=== PATIENT | female | born 1960 | race African-American/Black ===

== ENCOUNTER → 2016-11-24 | Outpatient (CLI) | payer OTHER ==
[~2016-11-24] VITALS: Ht 160 cm; Wt 88.5 kg
[~2016-11-24] MED LIST: ADIPEX-P37.5 MG PO; AMITRIPTYLINE H25 M2 PO; ASPIR 8181 MG PO; COLACE100 MG PO; FLEXERIL PO; FLOVENT HFA 1110 MCG INH; HYDROCODON-ACE1 EAC5 PO; LINZESS290 MCG PO; MAXZIDE-25 MG1 EACH PO; NEXIUM40 MG PO; NORCO 5-325 TA1 EACH PO; PROMETHAZI6.25 MG/5 PO; SINGULAIR 10 MG10 M1 PO; SYMBICORT160 MCG/4. INH; VOLTAREN GEL 1100 G1 TOP; VOLTAREN GEL 1100 GM TOP
--- NOTE | ~2016-11-24 | HPC ---
[facility] [address] [place] [address] PAIN MANAGEMENT CONSULTATION Name: GELYMITESH Room #: REG [facility] Annalise#: [id number] Admission: 11/24/16 Attend Phys: Rohith Andrade MD Discharge: Date of : 58 Report #: [id number] THIS REPORT FOR: //name// CC: Rohith Ragland DATE OF SERVICE: 11/24/2016 FOLLOWUP COMPLAINT: Here for medication renewal. FOLLOWUP HISTORY: The patient is a 56-year-old female who has been followed in the pain clinic because of pain associated with her legs. She has been experiencing low back pain as well as pain in her feet. She found that the Voltaren cream applied to her feet has been quite instrumental in decreasing the pain and discomfort. She continues to have pain and discomfort in the lumbar area and down into her legs. She describes a cramping, aching, throbbing, sharp sensation and rates it as a 9/10 when it is problematic. She notes exacerbation of pain while climbing stairs, sitting, standing and notes some improvement with rest as well as with medications. She is taking her medications as prescribed. She has had no complications with their use. She keeps her medications in a guarded area. PHYSICAL EXAMINATION: Blood pressure 143/80, pulse 118, respiratory rate 18, room air saturation 98.4, saturation is 100%. Weight 88 kg. BMI is 34.6. IMPRESSION: Chronic pain in the lower portion of the legs, which is exacerbated by certain activities such as climbing stairs, prolonged standing. We saw her in July and wrote for hydrocodone. The patient felt that the medicine is helpful as well as noted improvement using Voltaren gel. She would like to continue with the Voltaren gel as well as with the hydrocodone medications. She is unable to take nonsteroidal anti-inflammatory medications by mouth given her gastrointestinal problems. We would like to thank you for letting us participate in her care. We hope she continues to improve. <ELECTRONICALLY SIGNED> By: Rohith Andrade MD 12/05/16 1018 [id number] [id number] Rohith Andrade MD /nt
[2016-11-24 09:07] VITALS: BP 143/80
== END | disposition home or self-care (01) ==
LOC: PAIN 06:51
DX: M54.16 Radiculopathy, lumbar region (principal)

== ENCOUNTER → 2017-01-17 | Outpatient (CLI) | payer OTHER ==
[~2017-01-17] VITALS: Ht 160 cm; Wt 87.5 kg
--- NOTE | ~2017-01-17 | HPC ---
[facility] [address] [address] PAIN MANAGEMENT CONSULTATION Name: GELYMITESH Room #: REG YASHBrandy Woody#: [id number] Admission: 01/17/17 Attend Phys: Rohith Andrade MD Discharge: Date of : 58 Report #: [id number] THIS REPORT FOR: //name// CC: Rohith Ragland MD DATE OF SERVICE: 01/17/2017 FOLLOWUP HISTORY: Here for medication renewal and things are going reasonably well. FOLLOWUP HISTORY: The patient is a 56-year-old female who has been seen in the pain clinic because of lumbar radiculopathy. She is experiencing and has pain radiating down into her legs. She has also noted when she awakens in the morning, she does have pain and discomfort and cramping in both hands. She notes that it takes a little while before the numbness starts to subside. She does have a mother who had carpal tunnel syndrome and her mother's sensation and symptoms were similar to what she is experiencing. She finds that the Voltaren gel is helpful on her knees and would like to continue with it. She has had no problems since we saw her last. PHYSICAL EXAMINATION: Blood pressure 132/92, pulse 114, respiratory rate 20, room air saturation is 100%. Height 5 feet 3 inches, weight 87 kilograms. BMI is 34. The patient has pain and discomfort down into her legs bilaterally to the level of the cast. She also has some numbness and tingling sensation in her hands, left and right, particularly in the morning when she wakes up. She rates her pain overall as an 8/10. IMPRESSION: 1. Low back pain with pain radiating down into the legs. 2. Bilateral hand discomfort, particularly in the morning when she wakes up. The patient does not have pain radiating down from her shoulders or from the elbow. It appears that it is more in her hands. Most likely problem is carpal tunnel type pathology. She may consider visiting a surgeon in the future if it continues to be problematic. RECOMMENDATION: We will continue with her hydrocodone 5/325 one p.o. q. 4-6 hours p.r.n. A script for Voltaren gel will be renewed. Flexeril 10 mg 1 p.o. t.i.d. has been written. She notes some spasms and cramping in her low back and leg area. We would like to thank you for letting us participate in her care. We hope she continues to improve. By: 1212 1250 Rohith Andrade MD /nt
[2017-01-17 11:17] VITALS: BP 132/92
== END | disposition home or self-care (01) ==
LOC: PAIN 07:04
DX: M54.16 Radiculopathy, lumbar region (principal); I10 Essential (primary) hypertension; M19.90 Unspecified osteoarthritis, unspecified site; F17.200 Nicotine dependence, unspecified, uncomplicated

== ENCOUNTER → 2017-02-21 | Outpatient (CLI) | payer OTHER ==
[~2017-02-21] VITALS: Ht 160 cm; Wt 88.7 kg
--- NOTE | ~2017-02-21 | HPC ---
[facility] [place] [address] [place] [address] PAIN MANAGEMENT CONSULTATION Name: GELYMITESH Room #: REG Brandy Woody#: [id number] Admission: 02/21/17 Attend Phys: Rohith Andrade MD Discharge: Date of : 58 Report #: [id number] THIS REPORT FOR: //name// CC: Rohith Ragland DATE OF SERVICE: 02/21/2017 FOLLOWUP COMPLAINT: "The medication continues to be helpful with the pain down in my back and legs." FOLLOWUP HISTORY: The patient is a 56-year-old female who has been followed in the pain clinic because of low back pain with pain radiating down into each leg. She finds that Voltaren gel is efficacious on her knees. She feels that the hydrocodone medication continues to be helpful. Flexeril 10 mg 1 p.o. t.i.d. is beneficial as well. She has not had any problems with these medications. PHYSICAL EXAMINATION: Blood pressure 126/92, pulse 113, respiratory rate 16, room air saturation is 100. Height 5 feet 3, weight 88 kilograms, BMI is 34. She continues to have pain down into her legs bilaterally. She continues to experience some numbness and tingling in her hands, left and right, particularly in the morning. She rates her overall pain as a 10 today. The weather has changed and has gone from 70 degrees to the 50s today. IMPRESSION: 1. Low back pain with pain which continues to radiate down into her legs. 2. Hand discomfort, particularly in the morning of an arthritic nature. She notes some pain radiating down from her calves with an aching, throbbing, sharp, burning discomfort. Pain is exacerbated by standing, sitting, walking stairs and improves with rest and heat. RECOMMENDATIONS: We discussed treatment options with the patient. We will continue with her current medical regimen of Voltaren gel 1% q.i.d. to the affected joints, Flexeril 10 mg 1 p.o. t.i.d. and hydrocodone 10/325 one p.o. q. 4-6 hours p.r.n. pain. A script for 75 tablets has been written. Scripts for Flexeril and Voltaren have been provided. We discussed the need for the patient to only get her opioid medications from one physician. She has signed a contract with the [facility] indicating that she would receive opioid medications only from one physician to stay compliant with the law. We would like to thank you for letting us participate in her care. We hope she continues to improve. By: [phone] Rohith Andrade MD /jose
[2017-02-21 11:03] VITALS: BP 126/92
== END ==
LOC: PAIN 07:29
DX: M54.5 Low back pain (principal); M79.643 Pain in unspecified hand

== ENCOUNTER → 2017-03-23 | Outpatient (CLI) | payer OTHER ==
[~2017-03-23] VITALS: Ht 160 cm; Wt 86.3 kg
--- NOTE | ~2017-03-23 | HPC ---
[facility] [address] [address] PAIN MANAGEMENT CONSULTATION Name: GELYMITESH Room #: REG Brandy Woody#: [id number] Admission: 03/23/17 Attend Phys: Rohith Andrade MD Discharge: Date of : 58 Report #: [id number] THIS REPORT FOR: //name// CC: Rohith Ragland DATE OF SERVICE: 03/23/2017 FOLLOWUP COMPLAINT: Here for medication refill and I am having some severe pain in my left hand with numbness, weakness and tingling. FOLLOWUP HISTORY: The patient is a 56-year-old female who has been seen and followed in the pain clinic because of lumbar radicular pain down into her leg. She finds that use of Voltaren gel has been helpful. She places this on her knees. She finds that the hydrocodone medication and Flexeril are beneficial as well. She has noted some pain and discomfort involving her left hand at the level of her wrist. She feels that there is some discomfort there and is not sure whether or not she has carpal tunnel syndrome. PHYSICAL EXAMINATION: Blood pressure 137/87, pulse 104, respiratory rate 16, room air saturation is 100%. Height 5 foot 3 inches, weight 86 kg. BMI is 33. The patient has not fallen since we saw her last. She continues to have pain and discomfort in her hands, left side more problematic than the right, particularly in the morning. She rates her pain as a 10 today. The weather continues to change and has just rained today. IMPRESSION: 1. Low back pain, which continues to radiate down into her legs, improves with use of hydrocodone and Flexeril. 2. Left hand discomfort, particularly in the morning, may be of an arthritic nature. RECOMMENDATIONS: We will continue with her current medical regimen of Voltaren gel to the affected area q.i.d., Flexeril 10 mg 1 p.o. t.i.d., hydrocodone 10/325 one p.o. q. 4-6 hours p.r.n., A script for 75 tablets has been written. A script for her other medications has been written. She will follow up in the future as needed. The patient will wear a brace on the left arm and note its efficacy. We would like to thank you for letting us participate in her care. We hope she continues to improve. By: [id number] [id number] Rohith Andrade MD /jose
[2017-03-23 11:30] VITALS: BP 137/87
== END | disposition home or self-care (01) ==
LOC: PAIN 06:51
DX: M54.16 Radiculopathy, lumbar region (principal); M54.5 Low back pain; M79.642 Pain in left hand; F17.200 Nicotine dependence, unspecified, uncomplicated

== ENCOUNTER → 2017-04-18 | Outpatient (CLI) | payer OTHER ==
[~2017-04-18] VITALS: Ht 160 cm; Wt 86.8 kg
--- NOTE | ~2017-04-18 | HPC ---
[facility] [address] [address] [place] [address] PAIN MANAGEMENT CONSULTATION Name: MITESH HONG Room #: REG YASHBrandy Woody#: [id number] Admission: 04/18/17 Attend Phys: Rohith Andrade MD Discharge: Date of : 58 Report #: [id number] THIS REPORT FOR: //name// CC: Rohith Ragland MD DATE OF SERVICE: 04/18/2017 FOLLOWUP COMPLAINT: Here for medication renewal. FOLLOWUP HISTORY: The patient is a 56-year-old female who has been followed in the pain clinic because of low back pain, which radiates down into her legs. She finds that hydrocodone as well as Flexeril continues to be helpful. These enable her to engage in activities of daily living, she would not be able to without their use. She has had no complications from using them. She notes that the pain is worse when she is standing, sitting, and climbing stairs. Pain worsened . She notes that her pain improves somewhat with use of her medications, heat and feels that the Voltaren gel continues to be helpful. She continues to have some pain, which she describes as severe in her left hand and reports continued weakness, numbness and tingling down in her low back pain. PHYSICAL EXAMINATION: Blood pressure 121/91, pulse 105, respiratory rate 14, room air saturation is 100, height 5 feet 3 inches, weight 160 pounds, and BMI is 33. The patient has not fallen since we saw her last. IMPRESSION: 1. Low back pain-this continues to radiates down into her legs, notes improvement with use of hydrocodone and Flexeril. 2. Keeping the medications in a guarded place. 3. Left hand discomfort, sounds somewhat arthritic in nature. RECOMMENDATIONS: We will continue with the patient's current medical regimen of Voltaren gel to the affected area q.i.d., Flexeril 10 mg 1 p.o. t.i.d., and hydrocodone 10/325 one q.4-6 hours p.r.n. The patient has been given a script for 75 tablets. She will call us up if she has any problems with her medications. We would like to thank you for letting us participate in her care. We hope she continues to improve. By: [id number] Rohith Andrade MD /jose
[2017-04-18 10:36] VITALS: BP 121/91
== END | disposition home or self-care (01) ==
LOC: PAIN 07:04
DX: M79.605 Pain in left leg (principal); M79.604 Pain in right leg; F17.200 Nicotine dependence, unspecified, uncomplicated

== ENCOUNTER → 2017-05-16 | Outpatient (CLI) | payer OTHER ==
[~2017-05-16] VITALS: Ht 162.6 cm; Wt 86.2 kg
[2017-05-16 10:46] VITALS: BP 129/84
== END | disposition home or self-care (01) ==
LOC: PAIN 07:19
DX: M54.16 Radiculopathy, lumbar region (principal); M79.642 Pain in left hand; J45.909 Unspecified asthma, uncomplicated; F11.20 Opioid dependence, uncomplicated; F17.200 Nicotine dependence, unspecified, uncomplicated; Z88.8 Allergy status to other drugs, medicaments and biological substances; Z79.82 Long term (current) use of aspirin; Z79.899 Other long term (current) drug therapy

== ENCOUNTER → 2017-06-13 | Outpatient (CLI) | payer OTHER ==
[~2017-06-13] VITALS: Ht 160 cm; Wt 86.6 kg
--- NOTE | ~2017-06-13 | HPC ---
[facility] [address] [address] PAIN MANAGEMENT CONSULTATION Name: MITESH HONG Room #: REG [facility] Annalise#: [id number] Admission: 06/13/17 Attend Phys: Rohith Andrade MD Discharge: Date of : 58 Report #: [id number] THIS REPORT FOR: //name// CC: Rohith Ragland MD DATE OF SERVICE: 06/13/2017 FOLLOWUP COMPLAINT: Continued back pain and "I have plantar fasciitis." FOLLOWUP HISTORY: The patient is a 56-year-old female who has been followed in the pain clinic because of chronic pain. She continues to have pain, which radiates down into her legs. Hydrocodone and Flexeril continue to be helpful. She states that she has taken her medications as prescribed. She has suffered from plantar fasciitis. She has undergone an injection in her heel. She still finds that the pain is quite problematic and limits her activities of daily living. She feels that the Voltaren gel continues to be helpful. PHYSICAL EXAMINATION: Blood pressure 144/85, pulse 110, respiratory rate is 14, and room air saturation is 97%. Height 5 foot 3 inches, weight 191 pounds, BMI is 33. The patient has not fallen since we saw her last. Continues to have pain and discomfort, which radiates down into her legs. IMPRESSION: 1. Low back pain, continues to improve. Radiation down the legs limits some activities of daily living. 2. Left hand discomfort, which appears to be of arthritic in nature. 3. Plantar fasciitis, status post injection in her feet and discussed shoe . RECOMMENDATION: The patient will continue with her current medical regimen of Flexeril, hydrocodone and Voltaren. She also has been given advice to wear shoes which are less flexible than the flip-flops which she has on. We would like to thank you for letting us participate in her care. We hope she continues to improve. By: [id number] Rohith Andrade MD /nt
[2017-06-13 10:29] VITALS: BP 144/85
== END ==
LOC: PAIN 07:15
DX: M54.5 Low back pain (principal)

== ENCOUNTER → 2017-07-11 | Outpatient (CLI) | payer OTHER ==
[~2017-07-11] VITALS: Ht 160 cm; Wt 86.7 kg
[~2017-07-11] MED LIST changes: +MEDROLDOSEPACK PO
--- NOTE | ~2017-07-11 | HPC ---
[facility] [address] [place] [address] PAIN MANAGEMENT CONSULTATION Name: GELYMITESH Room #: REG JENNIFER Woody#: [id number] Admission: 07/11/17 Attend Phys: Rohith Andrade MD Discharge: Date of : 58 Report #: [id number] THIS REPORT FOR: //name// CC: Rohith Ragland DATE OF SERVICE: 07/11/2017 FOLLOWUP COMPLAINT: Here for medication renewal. My plantar fasciitis has got worse. FOLLOWUP HISTORY: The patient is a 56-year-old female who has been seen in the pain clinic because of chronic pain involving her low back with radiation down into her legs. She has noticed worsening of pain and discomfort in the right lower back with pain radiating down into the posterior portion of her leg and down to the calf area. She feels that the pain is problematic. She has got some injections in her feet. Because of this treatment and the use of needles in her feet, at this juncture she would like to continue on a conservative approach. She notes that her pain is worse when she is standing, sitting and with climbing stairs. She feels that the Voltaren gel continues to be helpful as well. She states that she keeps her medications in a guarded environment. She is where that opioid medications can cause addiction and can become less effective after a person develops tolerance. She feels at this juncture, she could increase her medication to 1 pill p.o. t.i.d. that might be more efficacious. PHYSICAL EXAMINATION: VITAL SIGNS: Blood pressure 125/82, pulse 107, respiratory rate 16, room air saturation 100%. Height 5 foot 3, weight 191 pounds, BMI is 33. MUSCULOSKELETAL: The patient has pain and discomfort in the right posterior buttocks area with pain radiating down the posterior portion of her leg in the L5-S1 distribution. She continues to have knee pain and finds that the use of Voltaren gel continues to be helpful. She continues to have pain and discomfort, which is consistent with plantar fasciitis. IMPRESSION: 1. Low back pain with radiation down into her right leg with numbness, tingling and weakness in the L5-S1 distribution. 2. The patient keeps her medications in a guarded place -- Aware of possible complications associated with narcotic use, which include addiction and tolerance. 3. Continued left hand discomfort, pain similar to that of arthritis. RECOMMENDATIONS: We discussed treatment options with the patient. We will increase her medications from ____ hydrocodone every day to 90 pills per month, [place] [address] PAIN MANAGEMENT CONSULTATION Name: MITESH HONG Room #: REG [facility] Annalise#: [id number] Admission: 07/11/17 Attend Phys: Rohith Andrade MD Discharge: Date of : 58 Report #: [id number] which is 1 p.o. t.i.d. She will also continue with her use of Flexeril and Voltaren gel. She will call us if she has any problems with her medications. We may consider lumbar epidural steroid injection in the future should her L5-S1 radiculopathy with numbness, weakness and tenderness persists. By: [id number] [id number] Roihth Andrade MD /nt
[2017-07-11 10:31] VITALS: BP 125/82
== END | disposition home or self-care (01) ==
LOC: PAIN 07:06
DX: M54.5 Low back pain (principal); Z68.33 Body mass index [BMI] 33.0-33.9, adult; Z79.899 Other long term (current) drug therapy; F17.200 Nicotine dependence, unspecified, uncomplicated

== ENCOUNTER → 2017-08-08 | Outpatient (CLI) | payer OTHER ==
[~2017-08-08] VITALS: Ht 160 cm; Wt 89.4 kg
--- NOTE | ~2017-08-08 | HPC ---
[facility] [place] [address] [address] [place] [address] PAIN MANAGEMENT CONSULTATION Name: GELYMITESH Room #: REG JENNIFER Woody#: [id number] Admission: 08/08/17 Attend Phys: Rohith Andrade MD Discharge: Date of : 58 Report #: [id number] THIS REPORT FOR: //name// CC: Rohith Veronica Goodyear DATE OF SERVICE: 08/08/2017 FOLLOWUP COMPLAINT: Low back pain with pain radiating down into the leg with some numbness and tingling. FOLLOWUP HISTORY: The patient is a 56-year-old female who has been seen in the pain clinic because of pain and discomfort involving her low back, as well as arthritic discomfort. She finds that her current medical regimen is helpful. She is still having some pain and discomfort, which radiates down into her calf. She states that her pain is worse when she is standing, sometimes sitting as well as climbing stairs. She feels that the Voltaren Gel continues to be helpful in her knees. She would like to continue with her current medications. She states that she has been taking her medications as prescribed. She keeps them in a guarded area. We have discussed the possibility of addiction as well as dependence with the patient. Overall, she feels that these medications were efficacious and enable her to engage in activities she would find more difficult without their use. She would like to have her medications prescribed on a bi-monthly basis. PHYSICAL EXAMINATION: Blood pressure 146/81, pulse 129, respiratory rate 18, room air saturation is 99, height 5 feet 3 inches, weight 197 pounds, BMI is 34. The patient has pain and discomfort in the buttocks with pain that continues radiating down the posterior portion of her leg in the L5-S1 distribution. She continues to have knee pain, which improves with use of Voltaren Gel. Continues to have some discomfort secondary to plantar fascitis. IMPRESSION: 1. Low back pain. Pain radiating down into her leg with numbness, tingling and weakness in the L5-S1 distribution. 2. Chronic knee pain. Finds that use of Voltaren Gel is helpful. 3. Some pain involving the plantar area. RECOMMENDATIONS: We discussed treatment options with the patient. At this juncture, she has been followed in the Pain Clinic for greater than a year. There have been no problems with her medications. We will advance her medications to a bi-monthly scheduling. She will give her medication for this month and the following month. She will call us if she has any problems with her medications. We would like to thank you for letting us participate in her care. A script for hydrocodone one p.o. [place].i.d. [place] [address] PAIN MANAGEMENT CONSULTATION Name: MITESH HONG Room #: REG JENNIFER Woody#: [id number] Admission: 08/08/17 Attend Phys: Rohith Andrade MD Discharge: Date of : 58 Report #: [id number] Voltaren Gel. We would like to thank you for letting us participate in her care. We hope she continues to improve. <ELECTRONICALLY SIGNED> By: Rohith Andrade MD 08/09/17 0822 1109 1459 Rohith Andrade MD /PMT
[2017-08-08 10:19] VITALS: BP 146/81
== END ==
LOC: PAIN 07:06
DX: M54.5 Low back pain (principal); M25.569 Pain in unspecified knee

== ENCOUNTER → 2017-10-05 | Outpatient (CLI) | payer OTHER ==
[~2017-10-05] VITALS: Ht 160 cm; Wt 88.5 kg
[~2017-10-05] MED LIST changes: +ACCUNEB SO1.25 MG/1 INH; +LISINOPRIL5 MG PO; +NEURONTIN 300300 M1 PO; +NORCO 10-325 T1 EACH PO; +PERCOCET 10-321 EAC1 PO; +VENTOLIN HFA 1818 GM INH; +VITAMIN D350000 UNIT PO
--- NOTE | ~2017-10-05 | HPC ---
[facility] [address] [address] [place] [address] PAIN MANAGEMENT CONSULTATION Name: GELYMITESH WHITMAN [facility] [id number] Admission: 10/05/17 Attend Phys: Rohith Andrade MD Discharge: Date of : 58 Report #: [id number] THIS REPORT FOR: //name// CC: Rohith Rgaland MD DATE OF SERVICE: 10/16/2017 FOLLOWUP COMPLAINT: Pain in the low back, as well as down into both legs. FOLLOWUP HISTORY: The patient is a 57-year-old female who has been followed in the pain clinic. As you recall, she has pain and discomfort in the lower portion of her back with lumbar radicular symptoms. She finds that her current opioid medication of hydrocodone 10/325 one p.o. t.i.d., Flexeril and Voltaren gel are helpful, particularly in the area of her knees. She feels that these medications are helpful. She is taking them as prescribed. We have discussed the possible complications of opioid medications, which include dependence and tolerance. She states that she keeps them in a controlled environment. She is able to engage in activities, she would not be able to without their use. PHYSICAL EXAMINATION: Blood pressure 127/80, pulse 115, respiratory rate 14, room air saturations 100. Height is 5 feet 3 inches, weight 195 pounds, BMI is 34. The patient complains of pain and discomfort with her knees, status post bilateral knee replacements. Continues to have some pain in the L5-S1 distribution. IMPRESSION: 1. Low back pain radiating down into her legs with numbness, tingling and weakness in the L5-S1 distribution. 2. Chronic knee pain. Finds use of Voltaren helpful. 3. Plantar fasciitis. RECOMMENDATIONS: The patient is going to see her heel sorter for treatment of this very painful problem. A script for her medications for the next 2 months has been written. Possible complication of using opioid medications again, have been renew. The patient will call us if she has any problems with her medications. She will keep them in an area that is guarded. <ELECTRONICALLY SIGNED> By: Rohith Andrade MD 10/18/17 0945 [id number] 1732 Rohith Andrade MD /[facility]
[2017-10-05 10:44] VITALS: BP 127/80
== END ==
LOC: PAIN 07:02
DX: M54.16 Radiculopathy, lumbar region (principal); G89.29 Other chronic pain; R20.0 Anesthesia of skin; R20.2 Paresthesia of skin; R53.1 Weakness; M25.561 Pain in right knee; M25.562 Pain in left knee; F19.90 Other psychoactive substance use, unspecified, uncomplicated; M72.2 Plantar fascial fibromatosis; Z96.653 Presence of artificial knee joint, bilateral

== ENCOUNTER → 2017-10-08 | Day surgery (SDC) | payer OTHER ==
[~2017-10-08] VITALS: Ht 160 cm; Wt 88.9 kg
[~2017-10-08] MED LIST changes: -LISINOPRIL5 MG PO; -NEURONTIN 300300 M1 PO; -PERCOCET 10-321 EAC1 PO
--- NOTE | ~2017-10-08 | EKG ---
[place] [address] [facility] [place] [address] ELECTROCARDIOGRAM REPORT Name: GELYMITESH Room #: 150-3 [facility]#: [id number] Admission: 10/08/17 Attend Phys: Maury No DPM Discharge: Date of : 58 Report #: [id number] THIS REPORT FOR: //name// [facility] Test Date: 2017-10-08 Test Time: 08:12:37 Pat Name: MITESH HONG Department: Room: 150 3 Gender: F Metal Cnc Operator: AIDE : 1960 Requested By: Maury No Order Number: [id number] MD: Reyes Funes Measurements Intervals [place] Rate: 106 P: 65 TX: 134 QRS: -28 QRSD: 80 T: 50 QT: 340 QTc: 452 Interpretive Statements Sinus tachycardia Borderline left axis deviation Abnormal R-wave progression, late transition No previous ECG available for comparison Electronically Signed On 10-08-2017 9:16:05 DATA SECURITY ADMINISTRATOR by Reyes Funes [email or web address] <ELECTRONICALLY SIGNED> By: Reyes Funes MD, [facility] 10/08/17915 1 1 Reyes Funes MD, [facility] /EPI
--- NOTE | ~2017-10-08 | O ---
[facility] [place] [address] OPERATIVE REPORT Name: MITESH HONG Room #: 150-3 [facility] M..#: [id number] Admission: 10/08/17 Attend Phys: Maury No DPM Discharge: Date of : 58 Report #: [id number] THIS REPORT FOR: //name// CC: Maury Veronica [place] DATE OF SERVICE: 10/08/2017 SURGEON: Maury No DPM PREOPERATIVE DIAGNOSIS: Plantar fasciitis, bilateral feet. POSTOPERATIVE DIAGNOSIS: Plantar fasciitis, bilateral feet. PROCEDURE: Fasciotomy, bilateral feet. ANESTHESIA: IV sedation, local nerve block. HEMOSTASIS: Provided with ankle tourniquets to bilateral lower extremities. ESTIMATED BLOOD LOSS: Minimal. COMPLICATIONS: There were no complications during the procedure or the anesthesia. PREOPERATIVE COURSE: This patient presented in the office for conservative treatment of her plantar fasciitis and was given 2 subsequent steroid injections, which failed to alleviate her pain. The pain in both arches has progressed to the severity of causing significant quality of life issues for her and after discussing our options in the office, decided that surgical correction would be performed after she admitted to understanding of the risks and complications involve as well as the technical aspects of the surgery. The patient signed a preoperative consent form, admitting to her understanding of both of these. OPERATIVE REPORT: The patient was wheeled to the operating room in usual supine condition and transferred to the operating room table, given IV sedation. Once the IV sedation was found to be adequate, local nerve block was given to the feet bilaterally. Upon reentering the operating room, anesthesia was found to be adequate. Esmarch tourniquets were used to exsanguinate the blood from the right foot and the ankle tourniquet elevated to 250 mmHg. A transverse incision was made on the plantar aspect of the right foot along the medial arch just distal to the area where the calcaneal tuberosity would be located. This was deepened sharply and bluntly, taking care to cauterize all bleeders and through blunt dissection, the medial band of the plantar fascia was identified. The medial band of the plantar fascia was transected over the medial 1/[address] [address] OPERATIVE REPORT Name: MITESH HONG Room #: 150-3 [facility]#: [id number] Admission: 10/08/17 Attend Phys: Maury No DPM Discharge: Date of : 58 Report #: [id number] proximal aspect of the plantar fascia. Upon external palpation, this was found to be decreased in tension along the medial arch. The tourniquet was released to the right foot. Cap refill immediately returned to all digits and hemostasis was maintained at the incision site. Using 4-0 nylon suture, a simple horizontal mattress stitch was used to close the wound. Sterile dressing was placed on the right foot. The tourniquet was then elevated on the left ankle after exsanguination with the Esmarch tourniquet. Again, a transverse incision was made on the plantar medial aspect of the left arch just anterior to the heel. This was deepened sharply and bluntly, taking care to cauterize and retract all bleeders and through a blunt dissection, the medial band of the plantar fascia was identified and released along its medial 1/3. Again, palpation of the medial arch externally was found to be free of any tension that was noted preoperatively. Upon release of the tourniquet, cap refill immediately returned to all digits on the left foot. The wound was closed with a simple horizontal mattress suture. Sterile dressing placed on the left foot. The patient left the operating room in a stable condition. She was given Lortab 7.5/325 mg for pain management and will follow up in about 3 days for postoperative wound management. By: [id number] Maury No, MERRITT /jose
[2017-10-08 08:33] LABS: CALCIUM 9.6 mg/dL (8.5-10.1); CREATININE 1.1 mg/dL (0.6-1.0); POTASSIUM 3.6 mmol/L (3.5-5.1)
[2017-10-08 09:13] VITALS: BP 154/79
== END | disposition home or self-care (01) ==
LOC: OR → TBA 05:16 → OR 09:15
PROVIDERS: Podiatrist
DX: M72.2 Plantar fascial fibromatosis (principal); I10 Essential (primary) hypertension; J45.909 Unspecified asthma, uncomplicated; K21.9 Gastro-esophageal reflux disease without esophagitis; F17.210 Nicotine dependence, cigarettes, uncomplicated; Z98.890 Other specified postprocedural states; Z90.710 Acquired absence of both cervix and uterus; Z96.653 Presence of artificial knee joint, bilateral; Z88.6 Allergy status to analgesic agent; Z88.8 Allergy status to other drugs, medicaments and biological substances; Z79.891 Long term (current) use of opiate analgesic; Z79.899 Other long term (current) drug therapy
CPT/HCPCS: 50010; 50101; 50386; 56526; 57092; 62110; 62850; 70005

== ENCOUNTER → 2017-12-07 | Outpatient (CLI) | payer OTHER ==
[~2017-12-07] VITALS: Ht 160 cm; Wt 91.6 kg
[~2017-12-07] MED LIST changes: +LISINOPRIL5 MG PO; +NEURONTIN 300300 M1 PO; +PERCOCET 10-321 EAC1 PO
--- NOTE | ~2017-12-07 | HPC ---
[facility] [address] [place] [address] PAIN MANAGEMENT CONSULTATION Name: GELYMITESH Room #: REG JENNIFER Woody#: [id number] Admission: 12/07/17 Attend Phys: Rohith Andrade MD Discharge: Date of : 58 Report #: [id number] THIS REPORT FOR: //name// CC: Rohith Ragland DATE OF SERVICE: 12/07/2017 FOLLOWUP COMPLAINT: Low back pain and pain down into both legs. FOLLOWUP HISTORY: The patient is a 57-year-old female, who has been followed in the pain clinic because of chronic pain. She suffers from low back pain with chronic lumbar radiculopathy. She finds that her current medication of opioid treatment has been helpful. She continues to use Flexeril and Voltaren Gel. She finds that these are particularly helpful for her knees. She states that she continues to take her medications as prescribed. We have reviewed the opioid medications and are better being used to provide analgesic control and help support activities of daily living. We reminded her that we are attempting to achieve improvement and that most likely resolution of the pain would not be achieved. The patient has not been exhibiting any aberrant behavior suggestive of drug diversion. She is not having any adverse reactions to the medications. She is not suffering from daytime somnolence or mental acuity changes. The patient is maintaining her opioid medications in a guarded environment. We reviewed with the patient the responsibility of safeguarding her medications or her responsibility and that she should utilize medications only as prescribed for pain from our pain clinic. She states that she adheres to that policy. ALLERGIES: LATEX, ADHESIVE TAPE, MOTRIN, NAPROSYN, AND COMPAZINE. CURRENT MEDICATIONS: Hydrocodone 10/325 one p.o. t.i.d., Flexeril 10 mg 1 p.o. t.i.d., Voltaren Gel 1% applied t.i.d. to q.i.d. to knee area, AccuNeb solution inhalation every 4 hours p.r.n. asthma, Ventolin 2 puffs q.6 hours p.r.n. as needed, multivitamin D, Symbicort 160/4.5 for asthma, promethazine 6.25 mg p.r.n. bronchitis/asthma, Aciphex 37.5, Colace 100 mg, Maxzide 25, Linzess 290 mg capsules, and Nexium 40 mg b.i.d. PAIN CLINICAL ASSESSMENT: 1. History of osteoarthritis, right lower extremity and left lower extremity, rheumatoid arthritis, not problematic. 2. Height 5 feet 3 inches, weight 202 pounds, and BMI is 35. 3. Vital signs: Blood pressure 151/80, pulse 116, respiratory rate 16, and room air saturation is 99%. 4. Pain intensity, 7. 5. Fall risk. The patient has not fallen in the last 3 months, is not suffering from dizziness. 6. The patient is [place] [address] PAIN MANAGEMENT CONSULTATION Name: GELYMITESH Room #: REG CLBrandy Woody#: [id number] Admission: 12/07/17 Attend Phys: Rohith Andrade MD Discharge: Date of : 58 Report #: [id number] 7. The patient is being treated for hypertension. 8. Opioid contract has been signed. 9. Assessment tool 0 with a low risk probability. 10. Functional assessment tool 42/70. 11. Recreational drug use, never. 12. Tobacco: The patient is a current tobacco user, smokes 1-1/2 pack per day, and has smoked for the last 18 years. We have counseled the patient regarding the efficacy of stopping tobacco use. Explained that it can exacerbate pain and discomfort associated with chronic back problems. PHYSICAL EXAMINATION: GENERAL: The patient is a well-developed, well-nourished female. Appears her stated age. Orientation, the patient is alert and oriented x 3. Affect appears appropriate. HEENT: The patient is atraumatic. Extraocular eye muscles intact. Hearing is normal. Denies sinus complaints. Buccal membranes are moist. HEART: Regular rate, somewhat tachycardic today. MUSCULOSKELETAL: Alignment appears normal. Complains of pain and discomfort in the low back area with pain radiating down into both legs. Notes of throbbing and burning sensation. Complains of some exacerbation of pain when standing, walking stairs, and worsening as the day progresses. IMPRESSION: 1. Low back pain, pain radiating down into her legs with numbness, tingling, and weakness in the L5-S1 distribution. 2. Chronic knee pain. Continue to use Voltaren Gel. 3. Pain in the plantar area. History of plantar fasciitis. 4. Tobacco use. Recommended this patient decrease her tobacco use. RECOMMENDATIONS: We discussed treatment options with the patient. At this juncture, we will continue with her current medication allotment. She has taken her medication as prescribed. She is not having any difficulty with mentation. No significant problems with GI constipation. We have discussed the use of tobacco on a regular basis. We explained that this can exacerbate pain and discomfort, especially in patients with back pain. We will continue with her current medication regimen. She will follow up in the future as needed. We would like to thank you for letting us participate in her care. We hope she continues to improve. <ELECTRONICALLY SIGNED> By: Rohith Andrade MD 01/09/18 1421 [id number] Rohith Andrade MD /nt
[2017-12-07 09:59] VITALS: BP 151/80
== END ==
LOC: PAIN 06:58
DX: M54.16 Radiculopathy, lumbar region (principal); R20.0 Anesthesia of skin; R20.2 Paresthesia of skin; G89.29 Other chronic pain; M25.569 Pain in unspecified knee; M72.2 Plantar fascial fibromatosis; F17.200 Nicotine dependence, unspecified, uncomplicated; Z91.040 Latex allergy status; Z88.6 Allergy status to analgesic agent; Z88.8 Allergy status to other drugs, medicaments and biological substances

== ENCOUNTER → 2018-02-06 | Outpatient (CLI) | payer OTHER ==
[~2018-02-06] VITALS: Ht 160 cm; Wt 92.3 kg
[~2018-02-06] MED LIST changes: -NEURONTIN 300300 M1 PO; -PERCOCET 10-321 EAC1 PO
--- NOTE | ~2018-02-06 | HPC ---
[facility] [place] [address] PAIN MANAGEMENT CONSULTATION Name: GELYMITESH J CARLOS [facility] [id number] Admission: 02/06/18 Attend Phys: Rohith Andrade MD Discharge: Date of : 58 Report #: [id number] THIS REPORT FOR: //name// CC: BOO physician/PCP Rohith DALY DATE OF SERVICE: 02/06/2018 FOLLOWUP COMPLAINT: Low back and mid back pain with pain down both legs. FOLLOWUP HISTORY: The patient is a 57-year-old female who has been followed in the pain clinic because of chronic pain involving her back. She suffers from chronic lumbar radicular pain. Finds that her medications continue to be efficacious. She feels that the Flexeril and Voltaren gel are helpful. Finds that the hydrocodone is helpful with controlling the pain as well. She tries to remain active. She is keeping her medications in a guarded area. She is aware of the information in the media regarding opioid medications. She feels that the medications are helpful in enabling her to remain active. Denies any mental problems with use of medication. She has returned today for renewal of her medications. ALLERGIES: LATEX, ADHESIVE TAPE, MOTRIN, NAPROSYN, COMPAZINE. MEDICATIONS: Hydrocodone 10/325 one p.o. t.i.d., Flexeril 10 mg 1 p.o. t.i.d., Voltaren gel 1% applied t.i.d. or q.i.d. to the knee areas, AccuNeb solution inhalation q. 4 hours p.r.n. asthma, Ventolin 2 puffs q. 6 hours p.r.n. as needed, multivitamin D, Symbicort 160/4.5 for asthma, promethazine 6.25 mg p.r.n. bronchitis/asthma, Aciphex 37.5, Colace 100 mg, Maxzide 25 mg,. Linzess 290 mg capsule, Nexium 40 mg b.i.d. PAIN CLINIC ASSESSMENT: 1. History of osteoarthritis involving the right lower extremity and left lower extremity. The patient has not been treated for rheumatoid arthritis. 2. Pain intensity 06/07. 3. Fall risk. The patient has not fallen in the last 3 months. 4. The patient is not on thinner 5. History of hypertension. The patient is being treated for hypertension. 6. Opioid therapy greater than 6 months. The patient has a signed a contract with the pain clinic. 7. Risk assessment tool zero/low for opioid problems. 8. Functional assessment tool. 9. Recreational drug use. Denies recreational drug use. 10. Tobacco: The patient is currently smoke cigarettes. 11. Alcohol: The patient does [place] [address] PAIN MANAGEMENT CONSULTATION Name: GELYMITESH Room #: REG JENNIFER Woody#: [id number] Admission: 02/06/18 Attend Phys: Rohith Andrade MD Discharge: Date of : 58 Report #: [id number] PHYSICAL EXAMINATION: VITAL SIGNS: Height 5 foot 3, weight is 203 pounds, BMI is 36. Blood pressure 118/72, pulse 112, respiratory rate 16, room air saturations 100. GENERAL: The patient is well developed black female. She appears her stated age. She is alert and oriented x 3. Affect is appropriate. Speech is fluent. HEENT: Normocephalic, atraumatic. Extraocular muscles intact. Sclerae is nonicteric, Hearing is within normal limits. Mucous membranes are moist. NECK: Without adenopathy. No JVD. Good range of motion. HEART: Regular rate, normal S1, S2. LUNGS: Clear to auscultation without rales or cough. MUSCULOSKELETAL: Normal without significant kyphosis, scoliosis or lordosis. EXTREMITIES: Upper extremities judged to be 5/5 for the major muscle groups in the upper extremities without sensory changes. Muscle groups 5/5, lower muscle straight judged to be 5/5 in the major muscle groups. The patient has pain and discomfort, which radiates down into both of her legs. Notes some throbbing sensation in her knees. Notes some pain when she is standing, pain with walking upstairs. Pain worsens as the day progresses. IMPRESSION: 1. Low back pain with pain radiating down into her legs with numbness, tingling and weakness in the L5-S1 distribution. 2. Chronic knee pain continues to use Voltaren. 3. Pain in the plantar area. History of plantar fasciitis. 4. Tobacco use. Recommend the patient decrease use of tobacco. RECOMMENDATIONS: We discussed treatment options with the patient. At this juncture, she feels that her medications continue to be beneficial. She is aware of the medial response to opioid medications. She states that the medication is helpful. She feels that these medications enable her to stay engaged in activities of daily living. She is taking the medication as prescribed. She is not having any untoward side effects from the medication. We would like to continue with her current medical regimen. We have rereviewed this information with the patient in a prescription for hydrocodone 90 mg 1 p.o. t.i.d. as well as Flexeril 10 mg 1 p.o. every day has been written. The patient also given a script for Voltaren cream to place on her knees for pain control. We would like to thank you for letting us participate in her care. We hope she continues to improve. <ELECTRONICALLY SIGNED> By: Rohith Andrade MD 02/15/18 0815 1637 40 Rohith Andrade MD /PMT
[2018-02-06 10:43] VITALS: BP 118/72
== END ==
LOC: PAIN 02-01 07:04
DX: M54.5 Low back pain (principal); G89.29 Other chronic pain; M25.562 Pain in left knee; M25.561 Pain in right knee; R20.2 Paresthesia of skin; F17.200 Nicotine dependence, unspecified, uncomplicated

== ENCOUNTER → 2018-04-05 | Outpatient (CLI) | payer OTHER ==
[~2018-04-05] VITALS: Ht 160 cm; Wt 91.7 kg
--- NOTE | ~2018-04-05 | HPC ---
[facility] [place] [address] PAIN MANAGEMENT CONSULTATION Name: GELYMITESH WHITMAN [facility] #: [facility] [id number] Admission: 04/05/18 Attend Phys: Rohith Andrade MD Discharge: Date of : 58 Report #: [id number] THIS REPORT FOR: //name// CC: BOO physician/PCP Rohith Ragland MD DATE OF SERVICE: 04/05/2018 FOLLOWUP COMPLAINT: Here for medications and things are going reasonably well. FOLLOWUP HISTORY: The patient is a 57-year-old female who has been followed in the pain clinic because of chronic pain involving her low back. She suffers from chronic lumbar radiculopathy. Finds that medications continue to be helpful. She feels that the Flexeril as well as Voltaren gel are beneficial as well. She would like to continue with her medications. Keeps her medications in a guarded area given that she has grandchildren around. She is aware through the media that opioid medications can be habit forming/cause addiction and can lose their efficacy because of tolerance. Overall, she feels that things are going reasonably well. She is having some postnasal drip at this juncture, feels that she is having some signs of cold or sinus congestion, has not seen a doctor because of this. Overall, she feels that things are going reasonably well and would follow up with her doctor, should her symptoms dictate. ALLERGIES: LATEX, ADHESIVE TAPE, MOTRIN, NAPROSYN, COMPAZINE. CURRENT MEDICATIONS: Hydrocodone 10/325 one p.o. t.i.d., Flexeril 10 mg 1 p.o. t.i.d., Voltaren gel 1% applied t.i.d. or q.i.d. to the knee area, AccuNeb inhaler for asthma, Ventolin 2 puffs q. 6 hours p.r.n., multivitamins, vitamin D, Symbicort 160/45 for asthma, promethazine 6.25 mg for bronchitis/asthma, Aciphex 37.5, Colace 100, Maxzide 25, Linzess 290 mg capsules, Nexium 40 mg b.i.d. PAIN CLINIC ASSESSMENT: 1. Osteoarthritis involving her right lower extremity and her left lower extremity as well. The patient is not being treated for rheumatoid arthritis. 2. Pain intensity is a 7/10. 3. Height 5 foot 3 inches, weight 202 pounds, BMI is 35.8. 4. Vital Signs: Blood pressure 143/89, pulse 105, respiratory rate 20, room air saturation 97%. 5. Fall risk. The patient has not fallen in the last 3 months. 6. Blood thinner. The patient is not on a blood thinning medication. 7. Hypertension. The patient is being treated for hypertension. 8. Opioid therapy greater than 6 weeks. The patient is being followed in the pain clinic and gets her medication from one source. 9. Risk assessment tool low for opioid use. [address] [address] PAIN MANAGEMENT CONSULTATION Name: MITESH HONG Room #: REG JENNIFER Woody#: [id number] Admission: 04/05/18 Attend Phys: Rohith Andrade MD Discharge: Date of : 58 Report #: [id number] 10. Functional assessment tool. 11. Recreational drug use. The patient denies use of recreational drugs. 12. Tobacco: The patient has never smoked. 13. Alcohol. The patient drinks alcoholic beverages on occasion. PHYSICAL EXAMINATION: GENERAL: The patient is a well-developed black female, appears her stated age. She is alert and oriented x 3. Affect is appropriate. Speech is fluent. HEENT: Normocephalic, atraumatic. Extraocular eye muscles intact. Sclerae nonicteric. Hearing is within normal limits. Mucous membranes are moist. The patient has some sinus congestion. Feels that there is some postnasal drip at this juncture. NECK: Without adenopathy. No JVD. Good range of motion. Regular rate, normal S1, S2. LUNGS: Virtually clear to auscultation without rales or cough. MUSCULOSKELETAL: Without significant kyphosis, scoliosis or lordosis. Upper extremities, sensory exam was within normal limits without change. Muscle group strength 5/5. Lower extremity exam, muscle strength 5/5. The patient has some pain and discomfort, which radiates down into both her legs. Does continue to note some throbbing sensation in her knees, has continued pain and discomfort, particularly when climbing stairs. IMPRESSION: 1. Low back pain, which continues to radiate down into both legs, numbness, tingling and weakness involving the L5-S1 distribution. 2. Chronic knee pain, continues to use Voltaren. 3. History of plantar fasciitis. 4. Tobacco use. We recommend that the patient decrease her use of tobacco. RECOMMENDATIONS: We discussed treatment options with the patient. At this juncture, we will continue with her current medications. She is aware of opioid medications and their good points as well as the bad. She feels that her sinuses are stable. Does have some postnasal drip, has not seen her primary. She will follow up with him if she notes that her sinus problem becomes more problematic. A script for hydrocodone 90 tablets 1 p.o. t.i.d. and Flexeril have been written for 2 months. She will also continue with Voltaren cream. She will call us if she has any problems with her medications. We would like to thank you for letting us participate in her care. We hope she continues to improve. <ELECTRONICALLY SIGNED> By: Rohith Andrade MD 04/10/18 1332 [id number] [id number] Rohith Andrade MD /nt
[2018-04-05 10:18] VITALS: BP 143/89
== END ==
LOC: PAIN 03-29 10:57
DX: G89.29 Other chronic pain (principal); M54.16 Radiculopathy, lumbar region; I10 Essential (primary) hypertension; F11.90 Opioid use, unspecified, uncomplicated; Z79.899 Other long term (current) drug therapy; Z87.891 Personal history of nicotine dependence

== ENCOUNTER → 2018-06-14 | Outpatient (CLI) | payer OTHER ==
[~2018-06-14] VITALS: Ht 160 cm; Wt 91.4 kg
[~2018-06-14] MED LIST changes: +PERCOCET 10-321 EAC1 PO
--- NOTE | ~2018-06-14 | HPC ---
[facility] [place] [address] PAIN MANAGEMENT CONSULTATION Name: MITESH HONG [facility] [id number] Admission: 06/14/18 Attend Phys: Rohith Andrade MD Discharge: Date of : 58 Report #: [id number] THIS REPORT FOR: //name// CC: BOO physician/PCP Rohith DALY DATE OF SERVICE: 06/14/2018 FOLLOWUP COMPLAINT: "Pain, which is radiating down into my left leg and down into my foot." FOLLOWUP HISTORY: The patient is a 57-year-old female who has been seen and followed in the pain clinic because of chronic pain associated with her low back. The patient is having pain and discomfort, which is radiating down into both legs with numbness and tingling. She is walking with a very antalgic gait. She is pretty much hobbling along because of the pain. She is unable to gain much relief. She finds that her hydrocodone medications are helpful, but not significantly decreasing the pain and discomfort. She states she had an MRI that showed some problems with her low back area. Rates her pain as a 10/10. Standing, sitting, and walking all are quite problematic. Use of heat and cold is not as effective at this juncture. She is experiencing pain radiating down the left buttocks, left leg, left foot with numbness, which is incapacitating. ALLERGIES: LATEX, ADHESIVE TAPE, MOBIC, MOTRIN, NAPROSYN, COMPAZINE. CURRENT MEDICATIONS: Hydrocodone 10/325 one p.o. t.i.d., Flexeril 10 mg 1 p.o. t.i.d., Voltaren gel applied to the affected area t.i.d./q.i.d. in the area of her knees. AccuNeb inhaler for asthma, Ventolin 2 puffs q. 6 hours p.r.n., multivitamins, vitamin D, Symbicort 160/45 for asthma, promethazine 6.25 mg for bronchitis/asthma, Aciphex 37.5, Colace 100, Maxzide 25, Linzess 290 mg capsules, and Nexium 40 mg b.i.d. PAIN CLINIC ASSESSMENT: 1. Osteoarthritis involving her right lower extremity and her left lower extremity as well. The patient is not being treated for rheumatoid arthritis. 2. Height 5 feet 3 inches, weight 201 pounds, BMI is 37.5. 3. Vital signs: Blood pressure 137/92, pulse 110, respiratory rate 16, room air saturations 100%. 4. Pain intensity 10/10. 5. Fall risk. The patient has not fallen, but is walking with a very antalgic gait. 6. Blood thinner. The patient is not on a blood thinning medication. 7. Hypertension. The patient is being treated for hypertension. 8. Opioid therapy greater than 6 weeks. The patient is receiving an opioid medications from the Pain Clinic. [address] [address] PAIN MANAGEMENT CONSULTATION Name: MITESH HONG Room #: REG [facility]#: [id number] Admission: 06/14/18 Attend Phys: Rohith Andrade MD Discharge: Date of : 58 Report #: [id number] 9. Risk assessment tool zero/low for opioid use. 10. Functional assessment tool. 11. Recreational drug use. 12. Current smoking: The patient is a smoker of 1-1/2 packs a day for the last 15 years. 13. Alcohol: The patient drinks alcoholic beverages on special occasions. PHYSICAL EXAMINATION: GENERAL: The patient is a well-developed, well-nourished black female, appears her stated age. She is alert and oriented x 3. Her affect is appropriate. Speech is fluent. HEENT: Normocephalic, atraumatic. Extraocular eye muscles intact. Sclerae nonicteric. Hearing is within normal limits. Mucous membranes are moist. The patient has pain and discomfort which is more problematic and causes some consternation. NECK: Without adenopathy, JVD. Good range of motion. HEART: Regular rate. S1, S2. LUNGS: Clear to auscultation without rales. MUSCULOSKELETAL: Without significant scoliosis, kyphosis or lordosis. Upper extremity muscle strength is judged to be 5/5 without weakness and without neurologic changes in lower extremity. The patient has pain and discomfort in the lower back radiating down the left buttocks into the posterior portion of her leg, posterior calf, and down into her foot with numbness and weakness. Straight leg raise is positive. The patient is unable to sit on her left buttocks. Leans to the right. Uses both hands to stand up. Walks with a very antalgic somewhat hopping gait. IMPRESSION: 1. Exacerbation of low back pain with lumbar radiculopathy involving the left leg. 2. Chronic knee pain. Continues to use a small chair. 3. History of plantar fasciitis. 4. Tobacco use. The patient continues to try to decrease the amount of tobacco that she is using. 5. Laboratory. The patient had the MRI, which showed some increased spinal stenosis in the outflow tract on the left at L5-S1. RECOMMENDATIONS: We discussed treatment options with the patient. At this juncture, she is having significant pain and discomfort. We will increase her opioid medication from hydrocodone for 1 week to Percocet 10/325 one p.o. b.i.d. or t.i.d. She will return to the Pain Clinic. Her insurance company will permit us to proceed with an epidural steroid injection to help break her pain cycle and provide benefit. Risks and benefits of the procedure had been discussed with the patient and she would like to proceed when her insurance company permits. [facility] [address] [place] [address] PAIN MANAGEMENT CONSULTATION Name: MITESH HONG [id number] Admission: 06/14/18 Attend Phys: Rohith Andrade MD Discharge: Date of : 58 Report #: [id number] We would like to thank you for letting us participate in her care. We hope she continues to improve. By: [id number] Rohith Andrade MD /jose
[2018-06-14 10:48] VITALS: BP 137/92
== END ==
LOC: PAIN 05-31 10:00
DX: M54.16 Radiculopathy, lumbar region (principal); M25.561 Pain in right knee; G89.29 Other chronic pain; F17.200 Nicotine dependence, unspecified, uncomplicated; Z79.899 Other long term (current) drug therapy

== ENCOUNTER → 2018-06-26 | Outpatient (CLI) | payer OTHER ==
[~2018-06-26] VITALS: Ht 160 cm; Wt 92.4 kg
[~2018-06-26] MED LIST changes: +NEURONTIN 300300 M1 PO
--- NOTE | ~2018-06-26 | HPC ---
[facility] [place] [address] PAIN MANAGEMENT CONSULTATION Name: GELYMITESH J CARLOS Room #: REG [facility] [id number] Admission: 06/26/18 Attend Phys: Rohith Andrade MD Discharge: Date of : 58 Report #: [id number] THIS REPORT FOR: //name// CC: BOO physician/PCP Rohith VANG [place] DATE OF SERVICE: 06/26/2018 FOLLOWUP COMPLAINT: Pain in the low back that goes down into the left buttocks and down into the left leg. HISTORY OF PRESENT ILLNESS: The patient is a 57-year-old female who has been followed in the Pain Clinic. As you recall, she has a significant history of low back pain. She is experiencing pain that is radiating down to her left buttocks and left leg involving her foot. Rates the pain as a 10/10. She has difficulty standing, walking and activities of daily living because of the worsening of her pain. She is experiencing pain radiating down into the L5-S1 distribution. We have discussed possibility of an epidural steroid injection. The patient would like to entertain that procedure given that her pain is quite unbearable and 10/10. ALLERGIES: LATEX, ADHESIVE TAPE, MOBIC, MOTRIN, NAPROSYN, COMPAZINE. CURRENT MEDICATIONS: Hydrocodone 10/325 one p.o. t.i.d., Flexeril 10 mg 1 p.o. t.i.d., Voltaren gel applied to the affected areas t.i.d./q.i.d. in the areas of her knees, AccuNeb inhaler for asthma, Ventolin 2 puffs q. 6 hours p.r.n., multivitamin, vitamin D, Symbicort 160/45 for asthma, promethazine 6.25 mg for bronchitis/asthma, Aciphex 37.5, Colace 100 mg, Maxzide 25 mg, Linzess 290 mg capsules, Nexium 40 mg b.i.d. PAIN CLINIC ASSESSMENT: 1. Osteoarthritis involving her lower extremities and left lower extremity as well. The patient has not been treated for rheumatoid arthritis. 2. Height 5 foot 3 inches, weight 203 pounds, BMI is 36.1. 3. Vital signs: Blood pressure 133/83, pulse 113, respiratory rate 16, room air saturation 100%. 4. Pain intensity 08/07. 5. Fall. The patient has not fallen in the last 3 months. 6. Blood thinner. The patient is not on a blood thinning medication. 7. History of hypertension. The patient is being treated for hypertension. 8. Opioid therapy. The patient is receiving opioid medications through the Pain Clinic. 9. Risk assessment tool, low for opioid use. 10. Functional assessment tool. 11. Recreational drug use: The patient denies. [address] [address] PAIN MANAGEMENT CONSULTATION Name: GELYMITESH Room #: REG [facility].#: [id number] Admission: 06/26/18 Attend Phys: Rohith Andrade MD Discharge: Date of : 58 Report #: [id number] 12. Current use of tobacco one half pack of cigarettes per day and smoked for 15 years. 13. Alcohol. On special occasions. 14. We discussed use of tobacco with the patient and the importance of cessation. She states that she is in the process of trying some decreased smoking. Greater than 3 minutes used during the discussion of tobacco. PHYSICAL EXAMINATION: GENERAL: The patient is a well-developed, well-nourished black female. Appears her stated age. She is alert and oriented x 3. The patient appears to be in significant amount of pain. Has pain expression on her face. Speech is fluent. HEENT: Normocephalic, atraumatic. Extraocular eye muscles intact. Sclerae nonicteric. Hearing is within normal limits. Mucous membranes are moist and the patient has a pain look and feel somewhat of consternation secondary to her discomfort. NECK: Without adenopathy or JVD. Good range of motion. HEART: Regular rate. S1, S2. LUNGS: Clear to auscultation without rales. MUSCULOSKELETAL: Without significant scoliosis, kyphosis or lordosis. Upper extremity muscle strength judged to be 5/5 without neurological changes. The patient has pain and discomfort in the lower portion of her back with pain that is radiating down into the left buttocks and posterior portion of her leg, calf, and down to the foot with numbness and tingling. Straight leg raise is positive. The patient is unable to sit on her buttocks. Leans forward slightly. Complains of pain and discomfort and walks with a very antalgic, somewhat hopping gait. IMPRESSION: 1. Lumbar radiculopathy with exacerbation involving the left buttocks and pain radiating down to the leg. 2. Chronic pain continues to be problematic in the knees. 3. History of plantar fasciitis. 4. Tobacco use, discussed the need to decrease tobacco use with the patient. 5. Laboratory MRI, which shows an increased spinal stenosis and obstruction of the outflow tract on the left at the L5-S1. RECOMMENDATIONS: We discussed treatment options with the patient. At this juncture, we will proceed with an epidural steroid injection. Risks and benefits of an epidural steroid injection were discussed. They include but are not limited to infection, increased muscle soreness, headache, bleeding, worsening of pain, no improvement in pain and the patient elects to proceed. PROCEDURE NOTE: The patient was taken to the procedure area. She was assisted in getting on the fluoroscopy table. Her back was sterilely prepped with a Betadine solution at L5-S1. Fluoroscopy was used using anterior and posterior as well as lateral viewing. The patient's back was infiltrated with 0.25% [facility] [address] [place] [address] PAIN MANAGEMENT CONSULTATION Name: GELYMITESH WHITMAN [facility] [id number] Admission: 06/26/18 Attend Phys: Rohith Andrade MD Discharge: Date of : 58 Report #: [id number] bupivacaine using a midline approach and directing towards the left paraspinous area. A 0.25% bupivacaine was infiltrated. A 17-gauge Tuohy with loss of resistance technique was used to gain access to the epidural space. There was no CSF, heme or paresthesia. A total of 40 mg triamcinolone, 80 mg Depo-Medrol were injected. The patient tolerated the procedure well. There were no complications. The patient's pain decreased from 10 to a 6 at the time of discharge. A total of 7 seconds fluoroscopy time was used. We would like to thank you for letting us participate in her care. We hope she continues to improve. <ELECTRONICALLY SIGNED> By: Rohith Andrade MD 08/12/18 1124 [id number] Rohith Andrade MD /jose
[2018-06-26 08:17] VITALS: BP 133/83
== END | disposition home or self-care (01) ==
LOC: PAIN 06-19 08:02
DX: M48.061 Spinal stenosis, lumbar region without neurogenic claudication (principal); M54.16 Radiculopathy, lumbar region; G89.29 Other chronic pain; M19.90 Unspecified osteoarthritis, unspecified site; F17.210 Nicotine dependence, cigarettes, uncomplicated; Z91.040 Latex allergy status; Z88.8 Allergy status to other drugs, medicaments and biological substances; Z79.891 Long term (current) use of opiate analgesic; Z79.899 Other long term (current) drug therapy

== ENCOUNTER → 2018-08-02 | Outpatient (CLI) | payer OTHER ==
[~2018-08-02] VITALS: Ht 160 cm; Wt 93.0 kg
--- NOTE | ~2018-08-02 | HPC ---
[facility] [place] [address] PAIN MANAGEMENT CONSULTATION Name: GELYMITESH WHITMAN Room #: REG [facility] Annalise#: [id number] Admission: 08/02/18 Attend Phys: Rohith Andrade MD Discharge: Date of : 58 Report #: [id number] THIS REPORT FOR: //name// CC: Rohith Harris DATE OF SERVICE: 08/02/2018 PRIMARY CARE PHYSICIAN: Jeremías Ragland M.D. FOLLOWUP HISTORY: Pain radiating down into the left foot. HISTORY: The patient is a 57-year-old black female who has been followed in the pain clinic. As you may recall, she has some history of low back pain with pain, which is radiating down into her feet on both sides. Notes that her pain is more problematic at this juncture. It is radiating down into the left leg with some numbness and tingling. She has difficulty walking because of it. Feels that her hydrocodone medications are barely easing her discomfort. She has returned today for another epidural steroid injection. Notes that the pain is worse in the left buttocks, left leg, and foot. Rates it as a 10/10, particularly while standing, walking and with the changes in weather. Has difficulty lying on one side. ALLERGIES: LATEX, ADHESIVE TAPE, MOBIC, MOTRIN, NAPROSYN, COMPAZINE. CURRENT MEDICATIONS: Hydrocodone 10/325 mg 1 p.o. t.i.d., Flexeril 10 mg 1 p.o. t.i.d., Voltaren gel to the affected area t.i.d., q.i.d., AccuNeb inhaler for asthma, Ventolin 2 puffs q.4-6 hours p.r.n., multivitamins, vitamin D, Symbicort 160 mcg/4.5 mcg for asthma, promethazine 6.25 mg for bronchitis/asthma, Aciphex 37.5, Colace 100, Maxzide 25, Linzess 290 mg, Nexium 40 mg b.i.d. PAIN CLINIC ASSESSMENT AND PQRS: 1. Osteoarthritic changes involving her right lower extremity and left lower extremity as well. The patient has not been treated for rheumatoid arthritis. 2. Height 5 feet 3 inches, weight 205 pounds, BMI is 36.5. 3. Vital signs: Blood pressure 133/81, pulse 107, respiratory rate 16, room air saturation is 100%. 4. Pain intensity 10/10. 5. Fall risk. The patient has not fallen in the last 3 months. 6. Blood thinner. The patient is not on a blood thinning medication. 7. Hypertension. The patient is not treated for hypertension. 8. Opioid therapy greater than 6 weeks. 9. Risk assessment tool, low for use of opioids. 10. Functional assessment tool. 11. Recreational drug use. The patient denies use of recreational drugs. [address] [address] PAIN MANAGEMENT CONSULTATION Name: MITESH HONG Room #: REG CL Annalise#: [id number] Admission: 08/02/18 Attend Phys: Rohith Andrade MD Discharge: Date of : 58 Report #: [id number] 12. Tobacco: The patient smokes 1-1/2 pack of cigarettes a day, has smoked for 12 years. 13. The patient drinks alcoholic beverages on occasion. PHYSICAL EXAMINATION: GENERAL: The patient is a well-developed, well-nourished, black female. Appears her stated age. She is alert and oriented x 3. Affect is appropriate. Speech is fluent. HEENT: Normocephalic, atraumatic. Extraocular eye muscles intact. Sclerae nonicteric. Hearing is within normal limits. Mucous membranes are moist. The patient is walking and has a somewhat look of consternation on her face secondary to the pain. NECK: Without adenopathy, JVD with good range of motion. HEART: Regular rate. S1, S2. LUNGS: Clear to auscultation without rales. MUSCULOSKELETAL: Without scoliosis, kyphosis or lordosis. Her upper extremity muscle strength judged to be 5/5 without neurological changes. Lower extremity, the patient has pain and discomfort with pain radiating down the left lower buttocks into the posterior portion of her leg, calf and down into her foot with numbness and weakness. Straight leg raise on the left is positive. The patient finds it difficult to sit up straight and leans to the right so as not to lean on the buttocks. She uses both hands to go from a sitting to a standing position, walks with a very antalgic somewhat hopping gait. IMPRESSION: 1. Exacerbation of low back pain with lumbar radiculopathy involving the left leg. 2. Chronic knee pain continues to be problematic. 3. History of plantar fasciitis. 4. Tobacco use, discussed decreasing use of opioids with the patient over 3-minute period of time. 5. She has returned to the clinic for an injection in the low back area involving the left leg. RECOMMENDATIONS: We discussed treatment options with the patient. They include but are not limited to infection, increased muscle soreness, headache, bleeding, worsening of pain, no improvement in pain, nerve damage, paralysis and the patient elects to proceed. PROCEDURE NOTE: The patient was taken to the procedure area. She was assisted in getting on the examination table. She was placed in the prone position. A pillow was placed under her abdomen to bolster and improve positioning. Anterior, posterior as well as lateral viewing using a fluoroscope was undertaken. The patient's back was sterilely prepped with a Betadine solution. At the left L5-S1 area, 0.25% bupivacaine was infiltrated. A 17-gauge Tuohy with loss of resistance technique was used to gain access to the epidural space. [address] [address] PAIN MANAGEMENT CONSULTATION Name: MITESH HONG Room #: REG [facility]#: [id number] Admission: 08/02/18 Attend Phys: Rohith Andrade MD Discharge: Date of : 58 Report #: [id number] There was no CSF, heme or paresthesia. Total of 80 mg Depo-Medrol, 40 mg triamcinolone and 2 mL of 0.25% bupivacaine was injected. The patient's pain decreased from 10-0 at the time of discharge. A 14 seconds fluoroscopy time was used. We would like to thank you for letting us participate in her care. We hope she continues to improve. <ELECTRONICALLY SIGNED> By: Rohith Andrade MD 08/12/18 1125 [id number] NShagufta Andrade MD /PMT
[2018-08-02 10:20] VITALS: BP 133/81
== END | disposition home or self-care (01) ==
LOC: PAIN 06:49
DX: M54.16 Radiculopathy, lumbar region (principal); G89.29 Other chronic pain; M25.562 Pain in left knee; F17.210 Nicotine dependence, cigarettes, uncomplicated; Z79.891 Long term (current) use of opiate analgesic; Z91.040 Latex allergy status; Z88.8 Allergy status to other drugs, medicaments and biological substances; Z79.899 Other long term (current) drug therapy; Z98.890 Other specified postprocedural states

== ENCOUNTER → 2018-08-16 | Outpatient (CLI) | payer OTHER ==
[~2018-08-16] VITALS: Ht 160 cm; Wt 93.8 kg
[2018-08-16 11:17] VITALS: BP 123/79
== END ==
LOC: PAIN 06:50
DX: M54.5 Low back pain (principal); M25.551 Pain in right hip; M25.552 Pain in left hip; M79.605 Pain in left leg; M79.672 Pain in left foot; I10 Essential (primary) hypertension; F17.210 Nicotine dependence, cigarettes, uncomplicated; Z72.89 Other problems related to lifestyle; Z79.899 Other long term (current) drug therapy; Z79.891 Long term (current) use of opiate analgesic

== ENCOUNTER → 2018-10-11 | Outpatient (CLI) | payer OTHER ==
[~2018-10-11] VITALS: Ht 160 cm; Wt 91.5 kg
[~2018-10-11] MED LIST changes: +OXYCODONE-ACET1 EAC2 PO
--- NOTE | ~2018-10-11 | HPC ---
[facility] [place] [address] PAIN MANAGEMENT CONSULTATION Name: MITESH HONG Room #: [facility] [id number] Admission: 10/11/18 Attend Phys: Torrie Hutchison Discharge: Date of : 58 Report #: [id number] THIS REPORT FOR: //name// CC: Torrie Hutchison Lianna Harris DATE OF SERVICE: 10/11/2018 CHIEF COMPLAINT: Continued low back pain with lumbar radiculopathy into her left leg greater than the right leg. HISTORY OF PRESENT ILLNESS: This is a very pleasant 57-year-old female who returns to the pain clinic today for a refill of her medication. The patient tells me that she has gone to see Dr. Jimenez at [facility]. She is going to have a lumbar laminectomy sometime in the end of October or beginning of November, a date has not been set at this time. The patient tells me that her pain score has been increasing. She has been having severe sciatic pain in her left buttock and left leg. Rating her pain score today at 8/10. She tells me that she has sharp, cramping, aching feeling, worse with walking and weather and standing. Her medications are helpful, but is requesting a possible change until she can have surgery. The patient tells me that she has had oxycodone in the past from Dr. Andrade for severe pain and found that that was helpful. The patient would like a refill of her medications today. ALLERGIES: COMPAZINE, IBUPROFEN, NAPROXEN, and ADHESIVE TAPE. CURRENT LIST OF MEDICATIONS: Amitriptyline 25 mg 3 tablets at bedtime; gabapentin 300 mg, one in the morning, one midday, two at night; Flexeril 10 mg up to 3 times a day, [place] 10/325 up to 4 times a day, lisinopril 5 mg daily, diclofenac gel as needed, albuterol inhaler as needed, vitamin D3 daily, Symbicort at bedtime, Colace daily, triamterene/hydrochlorothiazide daily, Linzess 290 mcg daily and Nexium 40 mg twice a day. PQRS: She has a history of osteoarthritis in her lower extremities and denies rheumatoid arthritis. Height is 5 feet 3 inches, weight is 201. BMI is 35.8. Vital signs: Blood pressure 139/85, pulse is 114, respirations 16, oxygen sat is 100%. Pain score is 8/10. Fall risk, she denies dizziness. Does not need help walking or standing and has not fallen in the last 3 months. The patient is not on any blood thinners and does take antihypertensive medicines. Opioid therapy is greater than 6 weeks, therefore, an opioid signed contract is on the chart. She has a low risk assessment and her functional assessment tool is 57. The patient denies recreational drug use. She currently smokes half pack of cigarettes a day and drinks alcohol occasionally, 1-2 glasses. We did check the prescription monitoring system. The patient is feeling appropriately from Dr. Andrade, appropriate refills. I do not see a recent urine drug screen. We will check that on the next visit for this patient. The patient tells me she does [address] [address] PAIN MANAGEMENT CONSULTATION Name: GELYMITESH Room #: REG [facility] Woody#: [id number] Admission: 10/11/18 Attend Phys: Torrie Hutchison Discharge: Date of : 58 Report #: [id number] safeguard her medications since she does have small children within her house. PHYSICAL EXAMINATION: GENERAL: This patient is well-developed, well-nourished black female who appears her stated age. She is alert and orientated x 3. Her affect is appropriate and her speech is fluent. HEENT: Normocephalic, atraumatic. Extraocular eye muscles are intact. Hearing was within normal limits. Her mucous membranes are moist. NECK: Without adenopathy or JVD. She has good range of motion. MUSCULOSKELETAL: Without significant scoliosis, kyphosis or lordosis. Upper extremity strength judged to be 5/5 in all major muscle groups. The patient does have pain and discomfort in her left lower buttock that radiates down her left leg into her calf and foot with numbness and weakness. She walks with an antalgic gait. Straight leg raising on the left is positive and she moves from sitting to standing from the chair with difficulty. IMPRESSION: 1. Lumbar radiculopathy pain involving the left leg. 2. Chronic knee pain. 3. History of plantar fasciitis. 4. Tobacco use, discussed decreasing tobacco use. 5. High risk medication management under terms of opioid agreement. We reviewed the fact that opiate medications are being used to provide analgesia adequate to support activities of daily living, not attempting to achieve a specific pain score on the 0-10 Visual Analog Scale. The current opiate medications are providing sufficient analgesia to allow the patient to participate in activities of daily living. The patient is not exhibiting any aberrant behavior suggestive of drug diversion. The patient is not having any adverse reactions to medications. The patient is not suffering from daytime somnolence or mental acuity changes. The patient is managing opiate-induced constipation with appropriate pkfo-yji-gsuuvlk agents and dietary considerations. The patient was counseled on concern for caution with operating a motor vehicle while using opiate medications. A physical exam was performed and the patient's functional status was evaluated. All patients with back pain were advised against the bed rest greater than 4 days and were advised to return to normal activities. Pain score assessment was noted and the treatment plan was reviewed with the patient. All current medications, both prescribed and OTC were reviewed and reconciled on the electronic medical record. Tobacco screening was accomplished and smoking cessation was advised when indicated. BMI was noted and diet/exercise modification was recommended for all patients following outside normal parameters. I reviewed with the patient today their responsibilities to [address] [address] PAIN MANAGEMENT CONSULTATION Name: MITESH HONG [facility] [id number] Admission: 10/11/18 Attend Phys: Torrie Hutchison Discharge: Date of : 58 Report #: [id number] prescription medications, reviewed their responsibility to utilize medications only as prescribed by the physician. They are to seek and receive pain medications only from 1 physician group ( [facility]). They are to use 1 pharmacy and keep the clinic informed if they change pharmacies. Their responsibilities include making followup visits in a timely fashion and to avoid abrupt discontinuation of medication usage. Their responsibilities further include bringing their medications (bottles from the pharmacy with residual pills) to the visit for possible confirmation of pill counts and the patient understands it is their responsibility to submit to random drug screens to ensure both that the medications prescribed are present, and that no other controlled substances are present. All prescriptions provided today were generated electronically. PLAN: 1. At this time, we will continue the patient's hydrocodone 10/325 up to 4 times a day and we have elected to give the patient one script of oxycodone 10/325, #45. The patient may take one tablet a day as needed for severe pain or half a tablet twice a day. Hopefully, this medicine will help get her through her severe pain days until she has her laminectomy done in October. The patient is to continue her hydrocodone as her normal breakthrough pain medicine. The patient is instructed that the oxycodone is only for severe pain and if she is having a good pain day, then to not use this medicine as this is for severe pain only and otherwise take her lowest most effective dose. The patient is understanding of this plan of care. Script given of hydrocodone, #120 for today and 4 week scripts. 2. Script given for amitriptyline #90. The patient takes 3 tablets at bedtime with one additional refill. 3. Flexeril 10 mg, #90 with one additional refill. 4. Gabapentin 300 mg t.i.d. The patient takes one tablet in the morning, one at midday and two at night, quantity 120 with one additional refill. The patient will be seen in two months' timeframe. If she has not had her back surgery, at this time we will readjust her severe pain again and the use of maybe another short-acting oxycodone script, but as of right now, this is a one-time script only given to the patient. The patient is seen in collaboration today with Dr. Durga Andrade. <ELECTRONICALLY SIGNED> By: Torrie Hutchison 10/14/18 [id number] Torrie Hutchison /jose
[2018-10-11 10:31] VITALS: BP 139/85
== END ==
LOC: PAIN 10:20
DX: M54.16 Radiculopathy, lumbar region (principal); M25.562 Pain in left knee; M19.90 Unspecified osteoarthritis, unspecified site; F17.210 Nicotine dependence, cigarettes, uncomplicated; Z88.8 Allergy status to other drugs, medicaments and biological substances; Z72.89 Other problems related to lifestyle; Z79.891 Long term (current) use of opiate analgesic; Z79.899 Other long term (current) drug therapy

== ENCOUNTER → 2018-12-11 | Outpatient (CLI) | payer OTHER ==
[~2018-12-11] VITALS: Ht 160 cm; Wt 93.0 kg
[~2018-12-11] MED LIST changes: +VOLTAREN GEL 1100 G2 TOP
[2018-12-11 10:52] VITALS: BP 110/73
--- NOTE | 2018-12-11 11:08 | NUR ---
Pain Clinic Assessment: 1. History of Osteoarthritis: Right Lower Extremity Left Lower Extremity History of Rheumatoid Arthritis: Not Applicable 2. Height: 5 ft. 3 in. 160.0 cm. Weight: 205.0 lb. oz. 92.988 kg. Patient's BMI: 36.3 3. Vital Signs: BP: 110/73 Pulse: 115 Resp: 16 Temp: 02 Sat: 100 ECG Mon: 4. Pain Intensity: 9 5. Fall Risk: Dizziness: N Needs help standing or walking: N Fallen in the last 3 months: N Fall risk comments: 6. Patient on Blood Thinner: None 7. History of Hypertension: Y 8. Opioid Therapy greater than 6 weeks: Y Opiate Contract Signed: 02/21/17 9. Risk Assessment Tool Provided: 1 LOW RISK 10. Functional Assessment Tool: 56 11. Recreational Drug Use: Never Drug Type: Tobacco Use: Current Some Day Smoker Tobacco Type: E-Cigarettes Amount or Packs/day: How Many Years: Alcohol Use: Yes Frequency: Monthly Quant: WINE
--- NOTE | 2018-12-12 08:36 | HPC ---
[facility] [place] [address] PAIN MANAGEMENT CONSULTATION Name: GELYMITESH J CARLOS Room #: REG [facility].#: [id number] Admission: 12/11/18 Attend Phys: Torrie Hutchison Discharge: Date of : 58 Report #: [id number] THIS REPORT FOR: //name// CC: Torrie Hutchison Lianna Harris DATE OF SERVICE: 12/11/2018 CHIEF COMPLAINT: Low back pain with radiculopathy. HISTORY OF PRESENT ILLNESS: This is a very pleasant 58-year-old female who returns to the pain clinic today for a refill of her pain medications. She tells me she underwent a lumbar laminectomy by Dr. Jimenez last month. She has been doing better at times. Other times, she tells me she continues to have leg pain. The patient places her pain score at 9/10 today, worse in her left foot and lower back. She does tell us today that she stopped her Elavil and her gabapentin. She did not think that they were very helpful. She tells me that she would like a refill of her Voltaren gel as well as her hydrocodone that seems beneficial for controlling her pain. She denies any constipation or daytime sleepiness. CURRENT ALLERGIES: COMPAZINE, IBUPROFEN, NAPROXEN AND ADHESIVE TAPE. CURRENT LIST OF MEDICATIONS: Oxycodone 10/325, Flexeril 10 mg t.i.d., hydrocodone 10/325 up to 4 times a day, lisinopril 5 mg daily, Voltaren gel 3 times a day, albuterol inhaler as needed, vitamin D3 weekly, Symbicort daily, Colace twice a day, triamterene/hydrochlorothiazide once daily, Linzess 290mg daily and Nexium 40 mg b.i.d. PQRS: 1. She has a history of osteoarthritis in her lower extremities. Denies rheumatoid arthritis. 2. Height is 5 feet 3 inches, weight is 205 and BMI is 36.3. 3. Vital signs 110/73, pulse is 115, respirations 16 and oxygen sat is 100. 4. Pain score is 9/10. 5. Fall risk. She denies dizziness. Does not need help walking or standing. She has not fallen in the last 3 months. 6. The patient is not on any blood thinners, but does take hypertension medicines. 7. Opiate therapy is greater than 6 weeks; therefore, an opioid signed contract is on the chart. 8. Risk assessment tool is low. Her functional assessment is 56/70. 9. Recreational drug use, she denies. She is a current smoker using e-cigarettes. She has quit smoking tobacco cigarettes. Alcohol use, she does drink wine occasionally. We checked the prescription monitoring system. The patient is filling appropriately medications from our doctors. She did fill [address] [address] PAIN MANAGEMENT CONSULTATION Name: GELYMITESH J CARLOS [facility]: [facility] [id number] Admission: 12/11/18 Attend Phys: Torrie Hutchison Discharge: Date of : 58 Report #: [id number] recently some oxycodone and diazepam from her surgeon. The patient was reminded that she is to fill only narcotics from our doctors. We will recheck a urine drug screen today on the patient since the last one has been at least a year old. PHYSICAL EXAMINATION: GENERAL: This is a well-developed, well-nourished black female who appears her stated age. She is alert and orientated x 3. Her affect is appropriate. Her speech is fluent. HEENT: Normocephalic and atraumatic. Extraocular eye muscles are intact. Hearing is normal. Mucous membranes are moist. NECK: Without adenopathy or JVD. MUSCULOSKELETAL: Without significant scoliosis, kyphosis or lordosis. Her upper extremity strength judged to be 5/5 in all major muscle groups. The patient does complain of left foot numbness today and occasional low back pain. She does walk with an antalgic gait. She has a well-healed surgical scar in her lower back. IMPRESSION: 1. Lumbar radiculopathy, status post lumbar laminectomy. 2. Chronic knee pain. 3. History of plantar fasciitis. 4. Tobacco use in the form of e-cigarettes. 5. High risk medication under terms of written opioid agreement. We reviewed the fact that opiate medications are being used to provide analgesia adequate to support activities of daily living, not attempting to achieve a specific pain score on the 0-10 Visual Analog Scale. The current opiate medications are providing sufficient analgesia to allow the patient to participate in activities of daily living. The patient is not exhibiting any aberrant behavior suggestive of drug diversion. The patient is not having any adverse reactions to medications. The patient is not suffering from daytime somnolence or mental acuity changes. The patient is managing opiate-induced constipation with appropriate emno-pxq-mevahsq agents and dietary considerations. The patient was counseled on concern for caution with operating a motor vehicle while using opiate medications. A physical exam was performed and the patient's functional status was evaluated. All patients with back pain were advised against the bed rest greater than 4 days and were advised to return to normal activities. Pain score assessment was noted and the treatment plan was reviewed with the patient. All current medications, both prescribed and OTC were reviewed and reconciled on the electronic medical record. Tobacco screening was accomplished and smoking cessation was advised when indicated. BMI was noted and diet/exercise modification was recommended for all patients following outside normal parameters. [facility] [address] [place] [address] PAIN MANAGEMENT CONSULTATION Name: MITESH HONG Room #: REG [facility].#: [id number] Admission: 12/11/18 Attend Phys: Torrie Hutchison Discharge: Date of : 58 Report #: [id number] I reviewed with the patient today their responsibilities to safeguard prescription medications, reviewed their responsibility to utilize medications only as prescribed by the physician. They are to seek and receive pain medications only from 1 physician group ( [facility]). They are to use 1 pharmacy and keep the clinic informed if they change pharmacies. Their responsibilities include making followup visits in a timely fashion and to avoid abrupt discontinuation of medication usage. Their responsibilities further include bringing their medications (bottles from the pharmacy with residual pills) to the visit for possible confirmation of pill counts and the patient understands it is their responsibility to submit to random drug screens to ensure both that the medications prescribed are present, and that no other controlled substances are present. All prescriptions provided today were generated electronically. PLAN: 1. We discussed treatment options with the patient today. The patient tells me she had surgery with Dr. Jimenez for her back in October, but continues to have some low back discomfort. I explained to the patient that it can take up to a year before all of her symptoms resolve and it has been only a month, so to give her healing more time. The patient did not know that it could take that long for her healing to take place. The patient tells me she had stopped her gabapentin and her Elavil after surgery. She continues to have some numbness in her foot. I told her she may need to still take some gabapentin once at bedtime. The patient still has plenty of this medication so on significant pain days, she will do this. 2. The patient given a script for hydrocodone 10/325, #120 for today and four week for her medication refills. The patient asked about oxycodone refill. I informed her that was only to get her to surgery and that would not be a medicine that we would be providing on a regular basis from now on. The patient verbalizes understanding. 3. Script given for Voltaren gel. The patient does use this and find it helpful for her osteoarthritis in her knees. 4. Flexeril 10 mg #90 with one additional refill also given today. 5. Urine drug screen was obtained. The patient will follow up in 2 months' time. The patient is seen today in collaboration with Dr. Durga Andrade. <ELECTRONICALLY SIGNED> By: Torrie Hutchison 12/12/18 [id number] Torrie Hutchison /jose
== END ==
LOC: PAIN 07:03
DX: M54.16 Radiculopathy, lumbar region (principal); M25.569 Pain in unspecified knee; F17.290 Nicotine dependence, other tobacco product, uncomplicated; Z88.8 Allergy status to other drugs, medicaments and biological substances; Z79.899 Other long term (current) drug therapy; Z79.891 Long term (current) use of opiate analgesic; Z98.890 Other specified postprocedural states

== ENCOUNTER → 2019-02-07 | Outpatient (CLI) | payer OTHER ==
[~2019-02-07] VITALS: Ht 160 cm; Wt 95.7 kg
[~2019-02-07] MED LIST changes: +MOBIC15 MG PO
--- NOTE | ~2019-02-07 | HPC ---
[facility] [place] [address] PAIN MANAGEMENT CONSULTATION Name: GELYMITESH J CARLOS [facility] [id number] Admission: 02/07/19 ������������������ Attend Phys: Rohith Andrade MD Discharge: ������������������ Date of : 58 Report #: [id number] THIS REPORT FOR: //name// CC: Rohith Harris DATE OF SERVICE: 02/07/2019 CHIEF COMPLAINT: Bilateral leg pain. HISTORY: The patient is a 58-year-old female. She has had back pain. She has undergone surgery with lumbar laminectomy. She feels that her pain medications are helpful. Continues to have pain, which she rates as a 10/10 today. The pain has shifted to the left side. She unfortunately had a fall few days ago. Her chair rolled from under her. She fell onto the hardwood floor. She has a new pain involving her left knee as well as the right back. The hydrocodone medication was helpful initially. Her pain now is much more intense and she would like to try Percocet to help quiet the pain. ALLERGIES: COMPAZINE, IBUPROFEN, NAPROSYN AND ADHESIVE TAPE. CURRENT MEDICATIONS: Oxycodone 10/325, Flexeril 10 mg t.i.d., hydrocodone 10/325 q hours, lisinopril 5 mg daily, Voltaren gel 3 times daily, albuterol inhaler p.r.n., vitamin D3 weekly, Symbicort daily, Colace b.i.d., triamcinolone/hydrochlorothiazide daily, Linzess 290 mcg daily, Nexium 40 mg b.i.d. PAIN CLINIC ASSESSMENT/PQRS: 1. She has a history of osteoarthritis in her lower extremity. Being treated for rheumatoid arthritis. 1. Height 5 feet 3 inches, weight 211 pounds, BMI is 37.4. 2. Vital signs: Blood pressure 139/84, pulse 80, respiratory rate 18, room air saturations 100%. 3. Pain intensity 08/07. 4. Fall risk. The patient did fall from chair and injured her some increased pain and discomfort in her back. 5. Blood thinner. The patient is not on a blood thinning medication. 6. Hypertension. The patient is being treated for hypertension. 7. Opioids greater than 6 weeks. The patient received medication from the Pain Clinic on a regular basis. 8. Risk assessment tool. Low for opioid use. 9. Functional assessment tool 56/70. 10. Recreational drug use. The patient denies use of recreational drugs. 11. Tobacco: The patient does smoke. 12. Alcohol: The patient occasionally drinks alcoholic beverages. [address] [address] PAIN MANAGEMENT CONSULTATION Name: GELYMITESH Room #: REG [facility].#: [id number] Admission: 02/07/19 ������������������ Attend Phys: Rohith Andrade MD Discharge: ������������������ Date of : 58 Report #: [id number] PHYSICAL EXAMINATION: GENERAL: The patient is a well-developed, well-nourished black female. Appears her stated age. She is alert and oriented x 3. Affect is appropriate. Speech is fluent. HEENT: Normocephalic, atraumatic. Extraocular muscles intact. Sclerae nonicteric. Mucous membranes moist. The patient has her grand-daughter with her. Hearing is within normal limits. NECK: Without adenopathy or JVD. MUSCULOSKELETAL: Without significant scoliosis, kyphosis or lordosis. The patient has some increased pain and discomfort in the lower extremity since the fall. Complains of pain and discomfort with increased pain radiating down into her back involving her right back area as well as some increased discomfort in her left knee. IMPRESSION: 1. Lumbar radiculopathy, status post lumbar laminectomy-new recent fall with increased right low back pain. 2. Chronic knee pain, increased pain status post fall. 3. History of plantar fasciitis. 4. Tobacco use in the form of e-cigarettes. 5. High risk medication with opioid medication. RECOMMENDATIONS: We discussed treatment options with the patient at this juncture, we will continue with her medications. She feels that the hydrocodone medication is not as effective. Since the fall her pain as a 10/10. She is finding activities of daily living such as standing, walking as well as lying down more problematic. She notes improvement with use of her medication as well as heat. Notes increased pain when she is lying on her left side. She has noted increased pain in her left knee, foot and both left and right buttocks since the fall. RECOMMENDATIONS: We will renew the patient's opioid medication. A script for oxycodone 10/325 one p.o. q. 4 hours has been written. The patient will also use Flexeril 10 mg 1 p.o. t.i.d. for the muscle spasms. Gabapentin 300 mg 1 p.o. t.i.d. will be continued as well. She will continue with Voltaren gel to the affected area. She will also take Mobic 15 mg daily. She will continue to monitor her GI tract for the use of Mobic. ____ notes increased GI discomfort. She will stop taking the Mobic medication. We would like to thank you for letting us participate in her care. We hope she continues to improve. ��������������������������������������������� ���������������������������������������� By: ��������������������������������������������� [id number] MD chencho Harris
[2019-02-07 10:57] VITALS: BP 139/84
--- NOTE | 2019-02-07 10:57 | NUR ---
Pain Clinic Assessment: 1. History of Osteoarthritis: Right Lower Extremity Left Lower Extremity History of Rheumatoid Arthritis: Not Applicable 2. Height: 5 ft. 3 in. 160.0 cm. Weight: 211.0 lb. oz. 95.709 kg. Patient's BMI: 37.4 3. Vital Signs: BP: 139/84 Pulse: 80 Resp: 18 Temp: 02 Sat: 100 ECG Mon: 4. Pain Intensity: 10 5. Fall Risk: Dizziness: N Needs help standing or walking: N Fallen in the last 3 months: Y Fall risk comments: 6. Patient on Blood Thinner: None 7. History of Hypertension: Y 8. Opioid Therapy greater than 6 weeks: Y Opiate Contract Signed: 02/21/17 9. Risk Assessment Tool Provided: 1 LOW RISK 10. Functional Assessment Tool: 56 11. Recreational Drug Use: Never Drug Type: Tobacco Use: Current Some Day Smoker Tobacco Type: Amount or Packs/day: How Many Years: Alcohol Use: Yes Frequency: Quant:
== END ==
LOC: PAIN 06:53
DX: M54.16 Radiculopathy, lumbar region (principal); M96.1 Postlaminectomy syndrome, not elsewhere classified; M25.561 Pain in right knee; F17.210 Nicotine dependence, cigarettes, uncomplicated; M72.2 Plantar fascial fibromatosis; W19.XXXA Unspecified fall, initial encounter; Z79.891 Long term (current) use of opiate analgesic; Z79.899 Other long term (current) drug therapy

== ENCOUNTER → 2019-04-04 | Outpatient (CLI) | payer OTHER ==
[~2019-04-04] VITALS: Ht 160 cm; Wt 99.2 kg
--- NOTE | ~2019-04-04 | HPC ---
[facility] [place] [address] PAIN MANAGEMENT CONSULTATION Name: GELYMITESH J CARLOS [id number] Admission: 04/04/19 ������������������ Attend Phys: Rohith Andrade MD Discharge: ������������������ Date of : 58 Report #: [id number] THIS REPORT FOR: //name// CC: Rohith Harris DATE OF SERVICE: 04/04/2019 FOLLOWUP COMPLAINT: Here for medications. FOLLOWUP HISTORY: The patient is a 58-year-old female who has been seen in the Pain Clinic. As you recall, she has had pain in her low back area and continues to have some pain in her left leg. She has had injections in the past. She states that she is going to undergo back surgery in a few weeks at [facility]. She has pain in the lower portion of her back with pain that radiates down into her back bilaterally. Left leg is most problematic. She has some numbness in her foot. She rates her pain as an 8/10. Standing, walking and weather changes have been problematic. Notes that sometimes lying down on her left side can be problematic as well. She has used medications and continues to use heat to help quell her discomfort. ALLERGIES: COMPAZINE, IBUPROFEN, NAPROSYN AND ADHESIVE TAPE. CURRENT MEDICATIONS: Oxycodone 10 mg q. 4 hours p.r.n., Flexeril 10 mg t.i.d., hydrocodone 10/325, lisinopril 5 mg daily, Voltaren gel 3 times daily to the affected area, albuterol inhaler, vitamin D3 weekly, Symbicort daily, Colace b.i.d., triamcinolone/hydrochlorothiazide, Linzess 290 mcg daily, Nexium 40 mg b.i.d. PAIN CLINIC ASSESSMENT/PQRS: 1. The patient has a history of osteoarthritis in her lower extremities. She has not been treated for rheumatoid arthritis. 2. Height 5 feet 3 inches, weight 218 pounds, BMI is 38.7. 3. Vital Signs: Blood pressure 134/81, pulse 120, respiratory rate 18, room air saturation 98%. 4. Pain intensity, 06/07 5. Fall risk. The patient has not fallen in the last 3 months. 6. Blood thinner. The patient is not on a blood thinning medication. 7. Hypertension. The patient has been treated for hypertension. 8. Opioid therapy. The patient is receiving opioid medications from one source, the Pain Clinic. 9. Risk assessment tool, low for opioid use. 10. Functional assessment tool, 56/70. 11. Recreational drug use. The patient denies. Currently, the patient has stopped smoking. She is not smoking from December 01. 12. Alcohol: The patient occasionally [place] [address] PAIN MANAGEMENT CONSULTATION Name: GELYMITESHVAL WHITMAN Room #: REG CL Annalise#: [id number] Admission: 04/04/19 ������������������ Attend Phys: Rohith Andrade MD Discharge: ������������������ Date of : 58 Report #: [id number] PHYSICAL EXAMINATION: GENERAL: The patient is a well-developed, well-nourished black female, appears her stated age. She is alert and oriented x 3. Her affect is appropriate. Speech is fluent. HEENT: Normocephalic, atraumatic. Extraocular eye muscles intact. Sclerae nonicteric. Mucous membranes are moist. NECK: Without adenopathy or JVD. MUSCULOSKELETAL: Without significant scoliosis, kyphosis or lordosis. The patient has some increased pain and discomfort in the lower extremity. Has pain that radiates down in her low back into the left leg into her toes. IMPRESSION: 1. Lumbar radiculopathy, status post lumbar laminectomy. 2. Chronic knee pain increased pain after a fall. 3. History of plantar fasciitis. 4. Tobacco use. The patient has stopped using the e-cigarettes and stopped using tobacco from December 01. 5. High risk medication use with opioids. RECOMMENDATIONS: We discussed treatment options with the patient. At this juncture, we will continue with her medications. She feels that the medications are helpful. She is anticipating surgery in the near future. We will continue with her medications of oxycodone 10 mg 1 p.o. q.i.d. She will also continue with gabapentin 300 mg 1 p.o. t.i.d. and the patient has also been given a script for meloxicam 15 mg daily, Flexeril is still helpful and she will continue with Flexeril 10 mg 1 p.o. t.i.d. Total of 90 tablets have been dispensed. We would like to thank you for letting us participate in her care. We hope she continues to improve. ____. ��������������������������������������������� ���������������������������������������� By: ��������������������������������������������� [id number] 0002 Rohith Andrade MD /jose
[2019-04-04 10:04] VITALS: BP 134/81
--- NOTE | 2019-04-04 10:09 | NUR ---
Pain Clinic Assessment: 1. History of Osteoarthritis: Right Lower Extremity Left Lower Extremity History of Rheumatoid Arthritis: Not Applicable 2. Height: 5 ft. 3 in. 160.0 cm. Weight: 218.6 lb. oz. 99.156 kg. Patient's BMI: 38.7 3. Vital Signs: BP: 134/81 Pulse: 120 Resp: 18 Temp: 02 Sat: 98 ECG Mon: 4. Pain Intensity: 8 5. Fall Risk: Dizziness: N Needs help standing or walking: N Fallen in the last 3 months: N Fall risk comments: 6. Patient on Blood Thinner: None 7. History of Hypertension: Y 8. Opioid Therapy greater than 6 weeks: Y Opiate Contract Signed: 02/21/17 9. Risk Assessment Tool Provided: 1 LOW RISK 10. Functional Assessment Tool: 56 11. Recreational Drug Use: Never Drug Type: Tobacco Use: Current Some Day Smoker Tobacco Type: Amount or Packs/day: How Many Years: Alcohol Use: Yes Frequency: Quant:
== END ==
LOC: PAIN 06:48
DX: Z76.0 Encounter for issue of repeat prescription (principal); M96.1 Postlaminectomy syndrome, not elsewhere classified; M54.16 Radiculopathy, lumbar region; M25.562 Pain in left knee; G89.29 Other chronic pain; Z87.891 Personal history of nicotine dependence; Z79.891 Long term (current) use of opiate analgesic

== ENCOUNTER → 2019-06-04 | Outpatient (CLI) | payer OTHER ==
[~2019-06-04] VITALS: Ht 160 cm; Wt 99.2 kg
[~2019-06-04] MED LIST changes: +NEURONTIN600 MG PO
[2019-06-04 10:46] VITALS: BP 141/83
--- NOTE | 2019-06-04 10:58 | NUR ---
Pain Clinic Assessment: 1. History of Osteoarthritis: Right Lower Extremity Left Lower Extremity History of Rheumatoid Arthritis: Not Applicable 2. Height: 5 ft. 3 in. 160.0 cm. Weight: 218.6 lb. oz. 99.156 kg. Patient's BMI: 38.7 3. Vital Signs: BP: 141/83 Pulse: 102 Resp: 16 Temp: 02 Sat: 100 ECG Mon: 4. Pain Intensity: 7 5. Fall Risk: Dizziness: N Needs help standing or walking: N Fallen in the last 3 months: N Fall risk comments: 6. Patient on Blood Thinner: None 7. History of Hypertension: Y 8. Opioid Therapy greater than 6 weeks: Y Opiate Contract Signed: 02/21/17 9. Risk Assessment Tool Provided: 1 LOW RISK 10. Functional Assessment Tool: 56 11. Recreational Drug Use: Never Drug Type: Tobacco Use: Former Smoker Tobacco Type: Amount or Packs/day: How Many Years: Alcohol Use: No Frequency: Quant:
--- NOTE | 2019-06-05 13:42 | HPC ---
[facility] [address] [address] PAIN MANAGEMENT CONSULTATION Name: GELYMITESH J CARLOS Room #: REG [facility].#: [id number] Admission: 06/04/19 Attend Phys: Torrie Hutchison Discharge: Date of : 58 Report #: [id number] THIS REPORT FOR: //name// CC: Torrie Hutchison Lianna Harris DATE OF SERVICE: 06/04/2019 CHIEF COMPLAINT: Chronic low back pain, lumbar radiculopathy, status post lumbar laminectomy. HISTORY OF PRESENT ILLNESS: This is a very pleasant 58-year-old female who returns to the pain clinic for her medication refills that she uses to take for her ongoing low back pain. She has undergone surgery a couple of months ago now and is still recovering. She does complain still of some low back pain and left leg pain that does radiate into her left foot giving me a pain score today of 7/10, worse with walking and changing of the weather, but her medication and heat are very beneficial. She does tell me that she is requiring three pain pills on most days and does require a fourth on some days that she has increased activity. Today she would like a refill of these medications that do not cause any oversedation or constipation issues. ALLERGIES: COMPAZINE, IBUPROFEN, NAPROXEN, ADHESIVE TAPE. CURRENT LIST OF MEDICATIONS: Flexeril 10 mg up to 3 times a day p.r.n., oxycodone 10/325 three times a day, meloxicam 15 mg daily, gabapentin 600 mg 3 times a day, diclofenac gel p.r.n., Zestril 5 mg daily, vitamin D3, Symbicort, Colace, Maxzide 25 mg p.r.n. and Linzess 290 mcg daily, Nexium 40 mg b.i.d. PQRS: 1. She has a history of osteoarthritis in her lower extremities. She is not being treated for rheumatoid arthritis. 2. Height is 5 feet 3 inches, weight is 218, BMI is 38. 3. Vital Signs: Blood pressure 141/83, pulse is 102, respirations 16, and oxygen sat is 100. 4. Pain score 7/10. 5. The patient denies dizziness, does not need help for standing and has not fallen in the last 3 months. 6. The patient is not on any blood thinners, does take medicine for hypertension. Opioid therapy is greater than 6 weeks; therefore, an opioid signed contract is on the chart. Risk assessment tool is low. Functional assessment is 56/70. 7. Recreational drug use, she denies. She is not a smoker and does not drink alcohol. According to the prescription monitoring system, [place] [address] PAIN MANAGEMENT CONSULTATION Name: MITESH HONG Room #: REG CLBrandy Neri.#: [id number] Admission: 06/04/19 Attend Phys: Torrie Hutchison Discharge: Date of : 58 Report #: [id number] appropriately for her medications in a timely fashion. There is a recent drug screen on the chart that is appropriate for her medications as well. PHYSICAL EXAMINATION: GENERAL: This is a well-developed, well-nourished black female who appears her stated age, placing her current pain score at 7/10. MUSCULOSKELETAL: She is alert and orientated and her speech is fluent. HEENT: Normocephalic, atraumatic. Extraocular eye muscles are intact. Mucous membranes are moist. NECK: Without adenopathy or JVD. MUSCULOSKELETAL: She is without significant kyphosis, scoliosis or lordosis. She has pain that radiates from her lumbar spine down her left leg to her foot. Her gait is normal. Her lower extremity strength judged to be 5/5 in all major muscle groups. IMPRESSION: 1. Lumbar radiculopathy, status post lumbar laminectomy. 2. Chronic knee pain. 3. Tobacco use. 4. High risk of medications under terms of written opiate agreement. We reviewed the fact that opiate medications are being used to provide analgesia adequate to support activities of daily living, not attempting to achieve a specific pain score on the 0-10 Visual Analog Scale. The current opiate medications are providing sufficient analgesia to allow the patient to participate in activities of daily living. The patient is not exhibiting any aberrant behavior suggestive of drug diversion. The patient is not having any adverse reactions to medications. The patient is not suffering from daytime somnolence or mental acuity changes. The patient is managing opiate-induced constipation with appropriate [id number] agents and dietary considerations. The patient was counseled on concern for caution with operating a motor vehicle while using opiate medications. A physical exam was performed and the patient's functional status was evaluated. All patients with back pain were advised against the bed rest greater than 4 days and were advised to return to normal activities. Pain score assessment was noted and the treatment plan was reviewed with the patient. All current medications, both prescribed and OTC were reviewed and reconciled on the electronic medical record. Tobacco screening was accomplished and smoking cessation was advised when indicated. BMI was noted and diet/exercise modification was recommended for all patients following outside normal parameters. I reviewed with the patient today their responsibilities to safeguard prescription medications, reviewed their responsibility to utilize medications only as prescribed by the physician. They are to seek and receive pain [address] [address] PAIN MANAGEMENT CONSULTATION Name: MITESH HONG Room #: REG [facility]#: [id number] Admission: 06/04/19 Attend Phys: Torrie URIEL Kianna Discharge: Date of : 58 Report #: [id number] medications only from 1 physician group ( [facility]). They are to use 1 pharmacy and keep the clinic informed if they change pharmacies. Their responsibilities include making followup visits in a timely fashion and to avoid abrupt discontinuation of medication usage. Their responsibilities further include bringing their medications (bottles from the pharmacy with residual pills) to the visit for possible confirmation of pill counts and the patient understands it is their responsibility to submit to random drug screens to ensure both that the medications prescribed are present, and that no other controlled substances are present. All prescriptions provided today were generated electronically. PLAN: 1. We discussed treatment options with the patient today. The patient is now about 3 months post-surgery. Her pain is slowly decreasing. We did discuss that our plan is to decrease her oxycodone. We will continue at the 4 a day of the for the next 2 months. The patient is encouraged to take the lowest most effective dose. then when she returns in 2 months, we will decrease her to 90 pills. The patient verbalizes understanding. 2. Scripts also given today for meloxicam 15 mg, #30 with one additional refill, Flexeril #90 with one additional refill and gabapentin 600 mg #90 with one additional refill. 3. The patient was seen by Dr. aMrio Andrade who also collaborated care today. <ELECTRONICALLY SIGNED> By: Torrie Hutchison 06/05/19 1342 1152 [id number] Torrie Hutchison /nt
== END ==
LOC: PAIN 06:59
DX: M54.16 Radiculopathy, lumbar region (principal); M25.569 Pain in unspecified knee; G89.29 Other chronic pain; Z72.0 Tobacco use; Z88.8 Allergy status to other drugs, medicaments and biological substances; Z79.899 Other long term (current) drug therapy; Z79.891 Long term (current) use of opiate analgesic

== ENCOUNTER → 2019-07-25 | Outpatient (CLI) | payer OTHER ==
[~2019-07-25] VITALS: Ht 160 cm; Wt 100.2 kg
[~2019-07-25] MED LIST changes: +PROTONIX40 M1 PO
[2019-07-25 08:57] VITALS: BP 151/88
--- NOTE | 2019-07-25 09:05 | NUR ---
Pain Clinic Assessment: 1. History of Osteoarthritis: B/L HIPS B/L LEGS History of Rheumatoid Arthritis: Not Applicable 2. Height: 5 ft. 3 in. 160.0 cm. Weight: 221.0 lb. oz. 100.245 kg. Patient's BMI: 39.2 3. Vital Signs: BP: 151/88 Pulse: 110 Resp: 16 Temp: 02 Sat: 97 ECG Mon: 4. Pain Intensity: 10 5. Fall Risk: Dizziness: N Needs help standing or walking: N Fallen in the last 3 months: N Fall risk comments: 6. Patient on Blood Thinner: None 7. History of Hypertension: Y 8. Opioid Therapy greater than 6 weeks: Y Opiate Contract Signed: 02/21/17 9. Risk Assessment Tool Provided: 1 LOW RISK 10. Functional Assessment Tool: 11. Recreational Drug Use: Never Drug Type: Tobacco Use: Former Smoker Tobacco Type: Amount or Packs/day: How Many Years: Alcohol Use: No Frequency: Quant:
--- NOTE | 2019-08-08 08:26 | HPC ---
[facility] [address] [address] [place] [address] PAIN MANAGEMENT CONSULTATION Name: GELYMITESH WHITMAN Room #: REG YASH Annalise#: [id number] Admission: 07/25/19 Attend Phys: Rohith Andrade MD Discharge: Date of : 58 Report #: [id number] THIS REPORT FOR: //name// CC: Dr. Jeremías Harris MD DATE OF SERVICE: 07/25/2019 CHIEF COMPLAINT: Here for medications. HISTORY: The patient is a 58-year-old female who has been followed in the pain clinic because of chronic pain in the back. As you may recall, she has had pain and discomfort, which continues to be problematic in the back area. It involves her left leg. Epidural injections in the past were helpful to a degree. Pain then worsened and she underwent back surgery. She continues to have some pain in the low back area. Pain continues to radiate down into her left leg. She has been experiencing some spasms in her low back. Spasms have been also noted in her legs. Sometimes it become quite intense and even at times unbearable. She has noted over the last week that the spasms have been more problematic and that she has had to take her medication on a more regular sometime shorten time scale. Notes that the pain is in the lower portion of her back down into both buttocks and involves her left leg, left foot as well as her right leg. Describes it as an aching discomfort and soreness and rates it as a 10/10. Notes that walking, changes in the weather all can increase her discomfort. Notes that use of heat and ice in conjunction with the medications is beneficial and she continues to do these activities. ALLERGIES: COMPAZINE, IBUPROFEN, NAPROSYN, AND ADHESIVE TAPE. CURRENT MEDICATIONS: Oxycodone 10 mg one p.o. q.4 hours p.r.n., Flexeril 10 mg t.i.d., hydrocodone 10/325, lisinopril 5 mg daily, Voltaren gel 3 times daily to the affected area, albuterol inhaler, vitamin D3 weekly, Symbicort daily, Colace b.i.d., triamcinolone/hydrochlorothiazide, Linzess 290 mcg daily, and Nexium 40 mg b.i.d. PAIN CLINIC ASSESSMENT/PQRS: 1. The patient has a history of osteoarthritis in her lower back. She has had surgery. She is not being treated for rheumatoid arthritis. 2. Height 5 feet 3 inches, weight 221 pounds, BMI is 39. 3. Vital signs: Blood pressure 151/88, pulse 110, respiratory rate 16, room air saturation 97%. 4. Pain intensity 10/10. 5. Fall history: The patient has not fallen in the last 3 [place] [address] PAIN MANAGEMENT CONSULTATION Name: MITESH HONG Room #: REG [facility].#: [id number] Admission: 07/25/19 Attend Phys: Rohith Andrade MD Discharge: Date of : 58 Report #: [id number] 6. Blood thinner. The patient is not on a blood thinning medication. 7. Hypertension. The patient is being treated for hypertension. 8. Opioids greater than 6 weeks. The patient received medication from one source, pain clinic. 9. Risk assessment tool, low for opioid use. 10. Functional assessment tool, 56/70. 11. Recreational drug use. The patient denies. 12. Alcohol. The patient denies frequent use of alcoholic beverages. PHYSICAL EXAMINATION: GENERAL: The patient is a well-developed, well-nourished black female, appears her stated age. She is alert and oriented x 3. Her affect is appropriate. Speech is fluent. HEENT: Normocephalic, atraumatic. Extraocular eye muscles intact. Sclerae nonicteric. Mucous membranes are moist. NECK: Without adenopathy or JVD. LUNGS: Clear to auscultation. EXTREMITIES: Upper extremity muscle strength judged to be 5/5 for the major muscle groups in the upper extremity. The patient has pain and discomfort in the lower portion of her back with pain radiating down into the back of her left as well as the right leg. Has some pain in the left leg, which radiates into her toes. IMPRESSION: 1. Lumbar radiculopathy, status post lumbar laminectomy. 2. Chronic knee, increased pain in the past after falling. 3. History of plantar fasciitis. 4. Tobacco use. The patient has stopped using e-cigarettes. 5. High risk medication use to help control the pain using opioids. RECOMMENDATIONS: We discussed treatment options with the patient. Risks and benefits of use of opioid medication were described. The patient is aware that opioid medications can be problematic in some patients. She is not feeling addicted. She is not showing signs of addictive behavior. She has taken her medication as prescribed. These enable her to engage in activities of daily living, she would not be able to without their use. Keeps her medications in a guarded area. She is aware that these medications over time may become less effective secondary development of tolerance. The patient is aware that 70,000 people last year as a result of overdosing of the medications. A script for her medications have been renewed. She will continue with the oxycodone 10 mg one p.o. q.4-6 hours p.r.n., total of 120 tablets have been provided for the next 2 months. Flexeril 10 mg 1 p.o. t.i.d. The Voltaren gel to the upper extremities q.i.d. and the patient will also continue with Neurontin 600 mg 1 p.o. t.i.d. [facility] [address] [place] [address] PAIN MANAGEMENT CONSULTATION Name: GELYMITESH J CARLOS Room #: REG [facility]#: [id number] Admission: 07/25/19 Attend Phys: Rohith Andrade MD Discharge: Date of : 58 Report #: [id number] We would like to thank you for letting us participate in her care. We hope she continues to improve. <ELECTRONICALLY SIGNED> By: Rohith Andrade MD 08/08/19 0826 [id number] 0019 Rohith Andrade MD /MIKHAIL
== END ==
LOC: PAIN 06:49
DX: M54.16 Radiculopathy, lumbar region (principal); M72.2 Plantar fascial fibromatosis; Z72.0 Tobacco use; Z79.891 Long term (current) use of opiate analgesic

== ENCOUNTER → 2019-09-24 | Outpatient (CLI) | payer OTHER ==
[~2019-09-24] VITALS: Ht 160 cm; Wt 90.9 kg
[~2019-09-24] MED LIST changes: +TOPROL XL100 MG PO
[2019-09-24 09:10] VITALS: BP 148/88
--- NOTE | 2019-09-24 09:23 | NUR ---
Pain Clinic Assessment: 1. History of Osteoarthritis: B/L HIPS B/L LEGS History of Rheumatoid Arthritis: Not Applicable 2. Height: 5 ft. 3 in. 160.0 cm. Weight: 200.4 lb. oz. 90.901 kg. Patient's BMI: 35.5 3. Vital Signs: BP: 148/88 Pulse: 90 Resp: 16 Temp: 02 Sat: 97 ECG Mon: 4. Pain Intensity: 8 5. Fall Risk: Dizziness: N Needs help standing or walking: N Fallen in the last 3 months: N Fall risk comments: 6. Patient on Blood Thinner: None 7. History of Hypertension: Y 8. Opioid Therapy greater than 6 weeks: Y Opiate Contract Signed: 02/21/17 9. Risk Assessment Tool Provided: 1 LOW RISK 10. Functional Assessment Tool: 11. Recreational Drug Use: Never Drug Type: Tobacco Use: Former Smoker Tobacco Type: Amount or Packs/day: How Many Years: Alcohol Use: No Frequency: Quant:
--- NOTE | 2019-09-29 19:30 | HPC ---
[facility] [place] [address] PAIN MANAGEMENT CONSULTATION Name: GELYMITESH WHITMAN Room #: REG JENNIFER Woody#: [id number] Admission: 09/24/19 Attend Phys: Rohith Andrade MD Discharge: Date of : 58 Report #: [id number] THIS REPORT FOR: //name// CC: Rohith Harris DATE OF SERVICE: 09/24/2019 CHIEF COMPLAINT: Here for medication renewal. HISTORY: The patient is a 58-year-old female who has been followed in the pain clinic because of chronic pain. She has undergone epidural steroid injections. She has had back surgery. She finds that her pain has helped with her current medical regimen. She uses oxycodone. She also notes Flexeril medications can be helpful. She has returned today for renewal of her medications. ALLERGIES: COMPAZINE, IBUPROFEN, NAPROSYN, ADHESIVE TAPE. CURRENT MEDICATIONS: 1. Diclofenac gel 1% four times topical to the affected area 2. Metoprolol 100 mg. 3. Oxycodone 10/325. 4. Gabapentin 600 mg 1 p.o. t.i.d. 5. Flexeril 10 mg t.i.d. spasms. 6. Protonix 40 mg. 7. Albuterol for asthma. 8. Ventolin 2 puffs p.r.n. 9. Symbicort 160/4.5. 10. Promethazine 6.5 mg bronchitis/asthma. 11. Docusate 100 mg b.i.d. 12. Linzess 290 mg. PAIN CLINIC ASSESSMENT AND PQRS: 1. The patient has a history of osteoarthritis in the lower back. She has had surgery. She is not being treated for rheumatoid arthritis. 2. Height 5 feet 3 inches, weight pounds, BMI is 35.5. 3. Vital signs: Blood pressure 148/88, pulse 90, respiratory rate 16, room air saturation 97%. 4. Pain intensity 06/07. 5. Fall risk. The patient has not fallen in the last 3 months. 6. Blood thinner. The patient is not on a blood thinning medication. 7. Hypertension. The patient is being treated for hypertension. 8. Opioids greater than 6 weeks. The [facility]. 9. Risk assessment tool, low for opioid use. [address] [address] PAIN MANAGEMENT CONSULTATION Name: GELYMITESH WHITMAN Room #: REG YASH Annalise#: [id number] Admission: 09/24/19 Attend Phys: Rohith Andrade MD Discharge: Date of : 58 Report #: [id number] . Functional assessment tool, . 11. Recreational drugs. The patient denies use of recreational drugs. 12. Tobacco: The patient is a former smoker. 13. Alcohol. The patient denies use of alcohol. PHYSICAL EXAMINATION: GENERAL: The patient is a well-developed, well-nourished black female, appears her stated age. She is alert and oriented x 3. Her affect is appropriate. Speech is fluent. HEENT: Normocephalic, atraumatic. Extraocular eye muscles intact. Sclerae nonicteric. Mucous membranes moist. NECK: Without adenopathy or JVD. EXTREMITIES: Upper extremity muscle strength judged to be 5/5 for the major muscle groups in the upper extremities. The patient has pain and discomfort in the lower portion of her back with pain that radiates down into her left and right leg. IMPRESSION: 1. Lumbar radiculopathy history, status post lumbar laminectomy with continued pain. 2. Chronic knee pain. 3. History of plantar fasciitis. 4. Tobacco use. The patient has stopped using e-cigarettes. 5. High risk medications of opioid use to help control pain. RECOMMENDATIONS: We discussed treatment options with the patient. At this juncture, she feels her medications are helpful. She is aware that opioid medications can be helpful. They can become less effective as time goes on. She has not shown any signs of addiction. She does not feel that she is addicted. She feels the medications when used are helpful enabling her to have a more productive day with less pain and discomfort. A script for her medications has been rewritten. She will continue with Percocet 10 one p.o. q.i.d., total of 120 tablets provided for the next month. An additional script for the following 4 weeks. She will call us if she has any concerns. She will keep her medications in a guarded area. She feels that the medications continue to be beneficial. <ELECTRONICALLY SIGNED> By: Rohith Andrade MD 09/29/19 [id number] Rohith Andrade MD /jose
== END ==
LOC: PAIN 06:43
DX: M25.561 Pain in right knee (principal); M54.16 Radiculopathy, lumbar region; Z72.0 Tobacco use

== ENCOUNTER → 2019-11-21 | Outpatient (CLI) | payer OTHER ==
[~2019-11-21] VITALS: Ht 152.4 cm; Wt 85.5 kg
[~2019-11-21] MED LIST changes: +NARCAN4 MG NARES
[2019-11-21 10:14] VITALS: BP 150/78
--- NOTE | 2019-11-21 10:23 | NUR ---
Pain Clinic Assessment: 1. History of Osteoarthritis: B/L HIPS B/L LEGS History of Rheumatoid Arthritis: Not Applicable 2. Height: 5 ft. 3 in. 152.4 cm. Weight: 188.6 lb. oz. 85.548 kg. Patient's BMI: 36.8 3. Vital Signs: BP: 150/78 Pulse: 80 Resp: Temp: 02 Sat: 97 ECG Mon: 4. Pain Intensity: 8 5. Fall Risk: Dizziness: N Needs help standing or walking: N Fallen in the last 3 months: N Fall risk comments: 6. Patient on Blood Thinner: None 7. History of Hypertension: Y 8. Opioid Therapy greater than 6 weeks: Y Opiate Contract Signed: 02/21/17 9. Risk Assessment Tool Provided: 1 LOW RISK 10. Functional Assessment Tool: 11. Recreational Drug Use: Never Drug Type: Tobacco Use: Former Smoker Tobacco Type: Amount or Packs/day: How Many Years: Alcohol Use: No Frequency: Quant:
--- NOTE | 2019-11-26 08:36 | HPC ---
[facility] [place] [address] PAIN MANAGEMENT CONSULTATION Name: GELYMITESH Room #: REG JENNIFER Woody#: [id number] Admission: 11/21/19 Attend Phys: Rohith Adnrade MD Discharge: Date of : 58 Report #: [id number] THIS REPORT FOR: //name// CC: Dr. Jeremías Harris DATE OF SERVICE: 11/21/2019 FOLLOWUP COMPLAINT: The medications continue to be helpful. "I have a urinary tract infection. I have been feeling pretty sick." HISTORY: The patient is a 59-year-old female who has been followed in the pain clinic because of chronic pain. As you may recall, she has lumbar radicular pain. She has undergone epidural steroid injections in the past and found some benefit from those. Her pain continues to be problematic. She underwent surgery. Pain improved, but she continues to have pain, which is problematic and receives episodic epidural steroid injections. Feels that her medications are helpful. The patient has been feeling more pain and discomfort. She rates it as an 8/10. She has recently found that she has a urinary tract infection. This has been affecting her. She has been told that she has some problems with infections in her kidney and is taking appropriate medications at this juncture. ALLERGIES: COMPAZINE, IBUPROFEN, NAPROSYN, AND ADHESIVE TAPE. CURRENT MEDICATIONS: Diclofenac 1% gel 4 times daily to the affected area, metoprolol 100 mg, oxycodone 10/325 one p.o. q 4-6 hours, gabapentin 600 mg 1 p.o. t.i.d., Flexeril 10 mg 1 p.o. t.i.d., muscle spasms, Protonix 40 mg, albuterol for asthma, Ventolin 2 puffs p.r.n., Symbicort 160/4.5, promethazine 6.5 mg for bronchitis/asthma, docusate 100 mg b.i.d., and Linzess 290 mg. PAIN CLINIC ASSESSMENT AND PQRS: 1. The patient has a history of osteoarthritis in the low back. She is not being treated for rheumatoid arthritis. 2. Height 5 feet 3 inches, weight 188 pounds, BMI is 36.8. 3. Vital signs: Blood pressure 150/78, pulse 80, respiratory rate was 18, room air saturation 97%. 4. Pain intensity 8/10. 5. Fall history: The patient has not fallen in the last 3 months. 6. Blood thinner. The patient is not on a blood thinning medication. 7. Hypertension. The patient is being treated for hypertension. 8. Opioids greater than 6 weeks. The patient [facility]. 9. Risk assessment tool, low for opioid use. [address] [address] PAIN MANAGEMENT CONSULTATION Name[facility]ELYMITESH [id number] Admission: 11/21/19 Attend Phys: Rohith Andrade MD Discharge: Date of : 58 Report #: [id number] 10. Functional assessment tool, 56. 11. Recreational drug use: The patient denies. 12. Tobacco: The patient is a former smoker. 13. Alcohol. The patient denies frequent use of alcoholic beverages. PHYSICAL EXAMINATION: GENERAL: The patient is a well-developed, well-nourished black female, appears her stated age. She is alert and oriented x 3. Her affect is appropriate. Speech is fluent. HEENT: Normocephalic, atraumatic. Extraocular eye muscles intact. Sclerae nonicteric. Mucous membranes are moist. NECK: Without adenopathy or JVD. EXTREMITIES: Upper extremity muscle strength judged to be 5/5 for the major muscle groups in the upper extremity. The patient has pain and discomfort in lower portion of her back and has pain that radiates down into her legs. Notes some generalized feeling of sickness associated with the urinary tract infection. IMPRESSION: 1. Urinary tract infection, now being treated with antibiotics. 2. Lumbar radiculopathy history, status post laminectomy with continued post-laminectomy pain. 3. Chronic knee pain. 4. History of plantar fasciitis. 5. Tobacco, the patient stopped and is using e-cigarettes. 6. High risk medications, using opioids to help control the pain. RECOMMENDATIONS: We discussed treatment options with the patient. At this juncture, we will continue with her medications of hydrocodone. The patient states that she is feeling somewhat under the weather because of the urinary tract infection. She is being treated with antibiotics and followed by her primary physician. The patient is aware that opioid medications can become less effective as time goes on secondary to development of tolerance. She is aware that some people may become addicted to the medication. She does not show any signs of addiction. She is taking her medications as prescribed. We have discussed the use of Narcan. The patient has been provided with a script for Narcan. Again, if should some family member accidentally get hold her medication or should she have some problem with it should have this medication to counteract the effects of opioid should that be the cause of her respiratory depression. She will follow up in the near future. A script for her medications has been written. She will continue with oxycodone 10 mg one p.o. [facility] [place] [place] [facility] [place] [address] PAIN MANAGEMENT CONSULTATION Name: MITESH HONG Room #: REG [facility] Annalise#: [id number] Admission: 11/21/19 Attend Phys: Rohith Andrade MD Discharge: Date of : 58 Report #: [id number] 4-6 hours, a total of 120 tablets per month and a second month of medication has been provided. The patient has been given a script for Narcan 4 mg nasal spray. <ELECTRONICALLY SIGNED> By: Rohith Andrade MD 11/26/19 0836 [id number] Rohith Andrade MD /nt
== END ==
LOC: PAIN 06:40
DX: G89.29 Other chronic pain (principal); N39.0 Urinary tract infection, site not specified; M96.1 Postlaminectomy syndrome, not elsewhere classified; Z79.899 Other long term (current) drug therapy; Z87.891 Personal history of nicotine dependence; Z79.891 Long term (current) use of opiate analgesic; Z88.8 Allergy status to other drugs, medicaments and biological substances

== ENCOUNTER → 2020-01-09 | Outpatient (CLI) | payer OTHER ==
[~2020-01-09] VITALS: Ht 160 cm; Wt 83.5 kg
[~2020-01-09] MED LIST changes: +BARIATRIC MV-I1 EACH PO; +CALCITRATE200 MG PO
[2020-01-09 09:37] VITALS: BP 151/92
--- NOTE | 2020-01-09 09:40 | NUR ---
Pain Clinic Assessment: 1. History of Osteoarthritis: B/L HIPS B/L LEGS History of Rheumatoid Arthritis: Not Applicable 2. Height: 5 ft. 3 in. 160.0 cm. Weight: 184.0 lb. oz. 83.462 kg. Patient's BMI: 32.6 3. Vital Signs: BP: 151/92 Pulse: 95 Resp: 20 Temp: 02 Sat: 100 ECG Mon: 4. Pain Intensity: 8 5. Fall Risk: Dizziness: N Needs help standing or walking: N Fallen in the last 3 months: N Fall risk comments: 6. Patient on Blood Thinner: None 7. History of Hypertension: Y 8. Opioid Therapy greater than 6 weeks: Y Opiate Contract Signed: 02/21/17 9. Risk Assessment Tool Provided: 1 LOW RISK 10. Functional Assessment Tool: 11. Recreational Drug Use: Never Drug Type: Tobacco Use: Former Smoker Tobacco Type: Amount or Packs/day: How Many Years: Alcohol Use: No Frequency: Quant:
--- NOTE | 2020-01-23 08:21 | HPC ---
[facility] [place] [address] PAIN MANAGEMENT CONSULTATION Name: MITESH HONG [id number] Admission: 01/09/20 Attend Phys: Rohith Andrade MD Discharge: Date of : 58 Report #: [id number] THIS REPORT FOR: cc: Lianna Harris MD,Lianna Andrade,Rohith Martin MD ~ CC: Rohith Harris DATE OF SERVICE: 01/09/2020 CHIEF COMPLAINT: Pain in the low back and down into both legs, some pain in the left foot. HISTORY: The patient is a 59-year-old female who has been followed in the pain clinic. As you recall, she continues to have back pain. She has lumbar radicular pain. She has undergone an epidural steroid injection in the past. She has also had back surgery. Her pain continues to be problematic. She rates it as an 8/10. Walking can be problematic. When the weather changes to cold, she notes increased discomfort. Walking, stairs, standing, bending, twisting are problematic. She is experiencing some aching, numbing, tingling discomfort in the low back and into both buttocks. She has most of her pain in the left hip with pain down into left leg and foot. She has returned today for renewal of her medications. She is taking her medication as prescribed. She is not having any complications with its use. ALLERGIES: COMPAZINE, IBUPROFEN, NAPROSYN, ADHESIVE TAPE. CURRENT MEDICATIONS: Diclofenac gel 1% 4 times daily to the affected area, metoprolol 100 mg, oxycodone 10/325 one p.o. q. 4 hours, gabapentin 600 mg 1 p.o. t.i.d., Flexeril 10 mg 1 p.o. t.i.d. muscle spasms, Protonix 40 mg, albuterol for asthma, Ventolin 2 puffs p.r.n., Symbicort 160/4.5, promethazine 6.5 mg for bronchitis/asthma, docusate 100 mg b.i.d., Linzess 290. PAIN CLINIC ASSESSMENT/PQRS: 1. The patient has a history of osteoarthritis in her low back. She is not being treated for rheumatoid arthritis. 2. Height 5 feet 3 inches, weight 184 pounds, BMI is 32.6. 3. Vital signs: Blood pressure 151/92, pulse 95, respiratory rate 20, room air saturation 100%. 4. Pain intensity 8/10. 5. Fall risk: The patient has not fallen in the last 3 months. 6. Blood thinner: The patient is not on a blood thinning medication. 7. Hypertension: The patient is being treated for hypertension. 8. Opioids greater than 6 weeks: The patient received medication from [facility] [place] [address] PAIN MANAGEMENT CONSULTATION Name: MITESH HONG Room #: REG [facility].#: [id number] Admission: 01/09/20 Attend Phys: Rohith Andrade MD Discharge: Date of : 58 Report #: [id number] 9. Risk assessment tool: Low for opioid use. 10. Functional assessment tool: 56/70. 11. Recreational drug use: The patient denies. 12. Tobacco: The patient is a former smoker. 13. Alcohol. The patient denies frequent use of alcoholic beverages. PHYSICAL EXAMINATION: GENERAL: The patient is a well-developed, well-nourished black female. She appears her stated age. She is alert and oriented x 3. Her affect is appropriate. Speech is fluent. HEENT: Normocephalic, atraumatic. Extraocular eye muscles intact. Sclerae nonicteric. NECK: Without adenopathy or JVD. MUSCULOSKELETAL: Upper extremity muscle strength judged to be 5/5 for the major muscle groups in the upper extremity. Lower extremity, the patient has pain and discomfort in lower portion of her back with pain radiating down into her buttocks on the left with pain down into the left leg involving her foot. IMPRESSION: 1. Lumbar radiculopathy, status post laminectomy with continued post-laminectomy syndrome. 2. Chronic knee pain. 3. History of plantar fasciitis. 4. Tobacco. The patient stopped smoking tobacco and is using e-cigarettes. 5. High risk medications to help control the pain. RECOMMENDATIONS: We discussed treatment options with the patient. At this juncture, we will continue with the patient's medication. She feels that the hydrocodone is helpful. The patient is aware that her medication can become less effective because of development of tolerance. She is not showing any signs of addiction. She is taking her medication as prescribed. She keeps her medications in a guarded area. We have discussed the benefits of Narcan. The patient has been given a script for this medication. She will continue with her medications. A script for oxycodone 10 mg one p.o. q.4-6 hours, total of 120 tablets have been provided. The patient has a second month of the same medication. She will call us if she has any concerns. We would like to thank you for letting us participate in her care. We hope she continues to improve. <ELECTRONICALLY SIGNED> By: Rohith Andrade MD 01/23/20 0821 [id number] MD MING Harris
== END ==
LOC: PAIN 06:39
DX: M54.5 Low back pain (principal); M79.605 Pain in left leg; M54.16 Radiculopathy, lumbar region; M79.604 Pain in right leg; M25.569 Pain in unspecified knee; Z87.891 Personal history of nicotine dependence; Z79.899 Other long term (current) drug therapy

== ENCOUNTER → 2020-03-10 | Outpatient (CLI) | payer OTHER ==
[~2020-03-10] VITALS: Ht 160 cm; Wt 78.7 kg
[2020-03-10 09:49] VITALS: BP 123/86
--- NOTE | 2020-03-10 10:03 | NUR ---
Pain Clinic Assessment: 1. History of Osteoarthritis: B/L HIPS B/L LEGS BACK History of Rheumatoid Arthritis: Not Applicable 2. Height: 5 ft. 3 in. 160.0 cm. Weight: 173.4 lb. oz. 78.654 kg. Patient's BMI: 30.7 3. Vital Signs: BP: 123/86 Pulse: 77 Resp: 14 Temp: 02 Sat: 100 ECG Mon: 4. Pain Intensity: 10 5. Fall Risk: Dizziness: N Needs help standing or walking: N Fallen in the last 3 months: N Fall risk comments: 6. Patient on Blood Thinner: None 7. History of Hypertension: Y 8. Opioid Therapy greater than 6 weeks: Y Opiate Contract Signed: 02/21/17 9. Risk Assessment Tool Provided: 1 LOW RISK 10. Functional Assessment Tool: 11. Recreational Drug Use: Never Drug Type: Tobacco Use: Former Smoker Tobacco Type: Amount or Packs/day: How Many Years: Alcohol Use: No Frequency: Quant:
--- NOTE | 2020-03-24 00:27 | HPC ---
[facility] [place] [address] [place] [address] PAIN MANAGEMENT CONSULTATION Name: MITESH HONG Room #: REG [facility].#: [id number] Admission: 03/10/20 Attend Phys: Rohith Andrade MD Discharge: Date of : 58 Report #: [id number] THIS REPORT FOR: cc: Lianna Harris MD, Teresa MD Brown,Rohith Martin MD ~ CC: Rohith Harris MD DATE OF SERVICE: 03/10/2020 CHIEF COMPLAINT: Here for medications. Still having pain in both legs. HISTORY: The patient is a 59-year-old female who has been followed in the Pain Clinic because of chronic pain involving her low back. Epidural steroid injections have been helpful in the past. They became less successful. She has undergone surgery. Still finds that her pain is problematic. She is noting worsening of pain with changes in weather. Walking stairs, bending, twisting still remain problematic. She has some tingling in the lower portion of her back with pain radiating down her buttocks. She has pain in her left hip down to her foot. She feels that her medications are helpful. She would like to continue their use. She has not had any complications from the medications. She rates her pain as a 10/10. No new problems with bowel or bladder function. ALLERGIES: COMPAZINE, IBUPROFEN, NAPROSYN, ADHESIVE TAPE. CURRENT MEDICATIONS: Diclofenac gel 1% 4 times daily to the affected area, metoprolol 100 mg, oxycodone 10/325 one p.o. q. 4 hours, gabapentin 600 mg 1 p.o. t.i.d., Flexeril 10 mg 1 p.o. t.i.d., Protonix 40 mg, albuterol for asthma, Ventolin 2 puffs p.r.n., Symbicort 160/4.5, promethazine 6.5 mg for bronchitis/asthma, docusate 100 mg b.i.d., Linzess 290 mg. PAIN CLINIC ASSESSMENT/PQRS: 1. The patient has a history of osteoarthritis in her back. She is not being treated for rheumatoid arthritis. 2. Has arthritic complaints in her hips, legs and back. 3. Height 5 feet 3 inches, weight 173 pounds, BMI is 30.7. 4. Vital signs: Blood pressure 123/86, pulse 77, respiratory rate 14, room air saturation 100%. 5. Pain intensity 6-7/10. 6. Fall risk. The patient has not fallen in the last 3 months. 7. Blood thinner. The patient is not on a blood thinning medication. 8. Hypertension. The patient is being treated for hypertension. 9. Opioids. The patient receives medication from the Pain Clinic. 10. Risk assessment tool, [place] [address] PAIN MANAGEMENT CONSULTATION Name: GEYLMITESH [id number]mission: 03/10/20 Attend Phys: Rohith Andrade MD Discharge: Date of : 58 Report #: [id number] 11. Functional assessment tool 54. 12. Recreational drugs. The patient denies. 13. Tobacco: The patient is a former smoker. 14. Alcohol. The patient denies use of alcoholic beverages on a regular basis. PHYSICAL EXAMINATION: GENERAL: The patient is a well-developed, well-nourished black female, appears her stated age. She is alert and oriented x 3. Her affect is appropriate. Speech is fluent. HEENT: Normocephalic, atraumatic. Extraocular eye muscles intact. Sclerae nonicteric. NECK: Without adenopathy or JVD. EXTREMITIES: Upper extremity muscle strength judged to be 5/5 for the major muscle groups in the upper extremity. Lower extremity, the patient has pain and discomfort in lower portion of her back with pain that still radiates down into her buttocks and involves the left side and involves her left leg to her foot. IMPRESSION: 1. Lumbar radiculopathy, status post laminectomy with continued post-laminectomy syndrome. 2. Chronic knee pain. 3. History of plantar fasciitis. 4. Tobacco: The patient stopped smoking and is using e-cigarettes. 5. Risk assessment ? the patient is using opioids to help control pain. RECOMMENDATIONS: We discussed treatment options with the patient. At this juncture, we will continue with her medication. She feels the medications continue to be helpful. She rates her pain as a 10/10. She is not showing signs of addiction. She has taken the medication as prescribed. Keeps her medications in a guarded area. She has Narcan available. A script for her medications has been renewed. The patient will continue with oxycodone 10 mg one p.o. q. 4-6 hours p.r.n. A total of 120 tablets have been made available. The patient has been given a second month of medications. She will call us if she has any concerns. We would like to thank you for letting us participate in her care. We hope she continues to improve. <ELECTRONICALLY SIGNED> By: Rohith Andrade MD 03/24/20 0027 [id number] Rohith Andrade MD /jose
== END ==
LOC: PAIN 06:54
DX: M54.16 Radiculopathy, lumbar region (principal); M79.604 Pain in right leg; M79.605 Pain in left leg; M96.1 Postlaminectomy syndrome, not elsewhere classified; F11.20 Opioid dependence, uncomplicated; Z86.19 Personal history of other infectious and parasitic diseases; M25.669 Stiffness of unspecified knee, not elsewhere classified; Z87.891 Personal history of nicotine dependence

== ENCOUNTER → 2020-05-07 | Outpatient (CLI) | payer OTHER ==
[~2020-05-07] VITALS: Ht 160 cm; Wt 74.3 kg
[2020-05-07 10:12] VITALS: BP 128/93
--- NOTE | 2020-05-07 10:47 | NUR ---
Pain Clinic Assessment: 1. History of Osteoarthritis: B/L HIPS B/L LEGS BACK History of Rheumatoid Arthritis: Not Applicable 2. Height: 5 ft. 3 in. 160.0 cm. Weight: 163.8 lb. oz. 74.299 kg. Patient's BMI: 29.0 3. Vital Signs: BP: 128/93 Pulse: 78 Resp: 14 Temp: 02 Sat: 100 ECG Mon: 4. Pain Intensity: 9 5. Fall Risk: Dizziness: N Needs help standing or walking: N Fallen in the last 3 months: N Fall risk comments: 6. Patient on Blood Thinner: None 7. History of Hypertension: Y 8. Opioid Therapy greater than 6 weeks: Y Opiate Contract Signed: 02/21/17 9. Risk Assessment Tool Provided: 1 LOW RISK 10. Functional Assessment Tool: 11. Recreational Drug Use: Never Drug Type: Tobacco Use: Former Smoker Tobacco Type: Amount or Packs/day: How Many Years: Alcohol Use: No Frequency: Quant:
--- NOTE | 2020-05-10 08:33 | HPC ---
[facility] [address] [address] PAIN MANAGEMENT CONSULTATION Name: MITESH HONG Room #: REG [facility].#: [id number] Admission: 05/07/20 Attend Phys: Torrie Hutchison Discharge: Date of : 58 Report #: [id number] THIS REPORT FOR: cc: Lianna Harris MD, Teresa MD Hocker,Torrie TREVINO ~ CC: Liliana Andrade MD DATE OF SERVICE: 05/07/2020 CHIEF COMPLAINT: Chronic low back pain and left lower extremity pain and left thoracic pain. HISTORY OF PRESENT ILLNESS: This is a pleasant 59-year-old female who returns to the pain clinic today for refill of her opioid medications. Today, she is stating she is going to have surgery for the kidney stones that have been bothersome for a couple of months. The surgery has been delayed due to the COVID virus and they were hopeful that she would pass the kidney stones on her own. She has not done this. She has developed a UTI, for which she has been on antibiotics. She feels that that has subsided with the medications, but continues to have some ongoing right flank pain as a result of her kidney stones. The patient today is complaining of significant left myofascial pain. She had gone to the Emergency Room at [facility], where they performed a chest x-ray on her. Her lungs were clear. Her pain today is located on her back on the left side. She states that it is worse with movement and is a deep constant ache. She has been applying heat and ice to this area as well as taking her pain medications. Today, she would like a refill of her medications that she uses to help treat her ongoing low back pain and left leg pain, which she has not been complaining of this visit due to the other issues that have superseded her pain. ALLERGIES: COMPAZINE, IBUPROFEN, NAPROXEN AND ADHESIVE TAPE. CURRENT LIST OF MEDICATIONS: Oxycodone 10/325 p.r.n., gabapentin 600 mg t.i.d., Flexeril 10 mg p.r.n., multivitamin, calcium, diclofenac gel, metoprolol, Protonix, albuterol, Symbicort, Colace and Linzess. PATIENT'S PQRS: 1. She has a history of osteoarthritis in her back. Denies any rheumatoid arthritis. She has arthritic changes as well as in her hips and legs. 2. Height is 5 feet 3 inches, weight is 163, BMI is 29. Vital signs: 128/93, pulse is 78, respirations 14, oxygen sat is 100. Pain score is 9/10. 3. Fall risk. Denies dizziness. Does not need help walking or standing. Has not fallen in the last 3 months. She is not on any blood thinners, but does take medicine for hypertension. Her opioid therapy is greater than 6 weeks, [address] [address] PAIN MANAGEMENT CONSULTATION Name: GELYMITESH WHITMAN Room #: REG [facility]#: [id number] Admission: 05/07/20 Attend Phys: Torrie Hutchison Discharge: Date of : 58 Report #: [id number] therefore an opioid signed contract is on the chart. Risk assessment tool is low. Functional assessment is 56/70. 4. Recreational drug use, she denies. She is a former smoker and does not drink alcohol. According to the prescription monitoring system, she is filling appropriately for her medications in a timely fashion. She is due to fill those medications today. She did bring with her the prescription of Tylenol No. 3 from the Emergency Room. She has almost the entire bottle of that medication left. She said it was not beneficial. PHYSICAL EXAMINATION: GENERAL: This is a well-developed, well-nourished, well-hydrated 59-year-old female who appears her stated age, placing her current pain score at 9/10 today. She is alert and orientated and a good historian. HEENT: Normocephalic, atraumatic. Extraocular eye muscles are intact. She is wearing a mask. NECK: Without adenopathy or JVD. MUSCULOSKELETAL: She has an area of myofascial pain that is global around the T10 to L1. This is slightly swollen today and tender to the touch. No tenderness on the right side of her back at this time. She does have pain and discomfort in the lower portion of her back that radiates into her buttocks that radiates down her left leg to her foot as well. Her upper and lower extremity strength judged to be 5/5 in all major muscle groups with good sensation from L1 to S2. IMPRESSION: 1. Myofascial pain. 2. Lumbar radiculopathy, status post laminectomy syndrome. 3. Chronic knee pain. 4. Ongoing kidney stone issues requiring upcoming surgery. 5. Opioid medications, managed under written agreement. We reviewed the fact that opiate medications are being used to provide analgesia adequate to support activities of daily living, not attempting to achieve a specific pain score on the 0-10 Visual Analog Scale. The current opiate medications are providing sufficient analgesia to allow the patient to participate in activities of daily living. The patient is not exhibiting any aberrant behavior suggestive of drug diversion. The patient is not having any adverse reactions to medications. The patient is not suffering from daytime somnolence or mental acuity changes. The patient is managing opiate-induced constipation with appropriate ngos-akz-lsmqliy agents and dietary considerations. The patient was counseled on concern for caution with operating a motor vehicle while using opiate medications. PLAN: [facility] [address] [place] [address] PAIN MANAGEMENT CONSULTATION Name: GELYMITESH WHITMAN Room #: REG [facility].#: [id number] Admission: 05/07/20 Attend Phys: Torrie Hutchison Discharge: Date of : 58 Report #: [id number] 1. We discussed treatment options with the patient today. 2. Dr. Durga Andrade did come and examine the patient as well. She has been complaining of significant pain in her back at her bra line. We believe this is myofascial pain. We encouraged the patient to take her Voltaren gel to this area 4 times a day. She is unable to take oral NSAIDs due to a gastric bypass. She has been on some prednisone that the Emergency Room at [facility] did prescribe for her. We encouraged her to continue this as well as a Voltaren gel. No scripts sent for this medication. She has plenty of refills at her pharmacy. 3. We will refill her oxycodone 10/325. For the first month, we will provide her with 150 pills. In the second month, reduce her back to 120. She is going to have surgery in 2 weeks for her kidney stones. This will help her with pain control postoperatively. We did encourage her to use the lowest most effective dose several days prior to surgery. The patient verbalizes understanding. 4. We will send her gabapentin 600 mg, #90 with 1 refill as well as Flexeril 10 mg, #90 with one additional refill. 5. The patient encouraged also to use heat and ice to her area that is inflamed in her back and to call in a few days if her pain has not subsided. The patient is seen today in collaboration with Dr. Durga Andrade, who did see the patient as well. <ELECTRONICALLY SIGNED> By: Torrie Hutchison 05/10/20 [id number] Torrie Hutchison /nt
== END ==
LOC: PAIN 06:45
PROVIDERS: ATTEND Clinical Nurse Specialist Adult Health
DX: M96.1 Postlaminectomy syndrome, not elsewhere classified (principal); M54.16 Radiculopathy, lumbar region; Z79.899 Other long term (current) drug therapy; Z79.891 Long term (current) use of opiate analgesic

== ENCOUNTER → 2020-07-02 | Outpatient (CLI) | payer OTHER ==
[~2020-07-02] VITALS: Ht 160 cm; Wt 72.6 kg
--- NOTE | ~2020-07-02 | HPC ---
[facility] [place] [address] [place] [address] PAIN MANAGEMENT CONSULTATION Name: MITESH HONG Room #: REG [facility].#: [id number] Admission: 07/02/20 Attend Phys: Rohith Andrade MD Discharge: Date of : 58 Report #: [id number] THIS REPORT FOR: cc: Lianna Harris MD,Lianna Andrade,Rohith Martin MD ~ CC: Rohith Harris DATE OF SERVICE: 07/02/2020 PRIMARY CARE PHYSICIAN: Lianna Harris MD CHIEF COMPLAINT: "Here for medication renewal and my had a stroke." HISTORY: The patient is a 59-year-old female who has been followed in the pain clinic because of chronic lumbar radicular pain. She has undergone epidural steroid injections in the past. She has also undergone surgery. She still has pain associated with her back. She has pain that is involving her right hip and radiates down into the right leg and foot. Her had a stroke on 06/11/2020. She is taking care of him. This has been an extremely stressful period of time. She has returned today for renewal of her medications. She rates her pain as an 8/10. Standing, walking, climbing stairs, lifting all exacerbates her discomfort. ALLERGIES: COMPAZINE, IBUPROFEN, NAPROSYN, ADHESIVE TAPE. CURRENT MEDICATIONS: Diclofenac gel 1% 4 times daily to affected area, metoprolol 100 mg, oxycodone 10/325 one p.o. q. 4 hours, gabapentin 600 mg 1 p.o. t.i.d., Flexeril 10 mg 1 p.o. t.i.d., Protonix 40 mg, albuterol for asthma, Ventolin 2 puffs p.r.n., Symbicort 160/4.5, promethazine for bronchitis and asthma, docusate 100 mg b.i.d., Linzess 290 mg. PAIN CLINIC ASSESSMENT AND PQRS: 1. The patient has a history of osteoarthritis in her back. She is not being treated for rheumatoid arthritis. 2. Height 5 feet 3 inches, weight 160 pounds, BMI is 28. 3. Vital signs: Blood pressure is 129/80, pulse 82, respiratory rate 14, room air saturation 100%. 4. Pain intensity 810. 5. Fall history: The patient has not fallen. 6. Blood thinner. The patient is not on a blood thinning medication. 7. Hypertension. The patient is being treated for hypertension. 8. Opioids greater than 6 weeks. The patient received medication from the pain clinic. 9. Risk assessment tool, [place] [address] PAIN MANAGEMENT CONSULTATION Name: MITESH HONG Room #: REG [facility]#: [id number] Admission: 07/02/20 Attend Phys: Rohith Andrade MD Discharge: Date of : 58 Report #: [id number] 10. Functional assessment tool, 56/70. 11. Recreational drug use. The patient denies. 12. Tobacco: The patient is a former smoker. 13. Alcohol. The patient denies use of alcoholic beverages. PHYSICAL EXAMINATION: GENERAL: The patient is a well-developed, well-nourished black female, appears her stated age. She is alert and oriented x 3. Her affect is appropriate and the patient appears concerned regarding the stroke that her has had and the need to provide help with his recovery. HEENT: Normocephalic, atraumatic. Extraocular eye muscles intact. The patient is wearing a facial covering. NECK: Without adenopathy or JVD. MUSCULOSKELETAL: Upper extremity muscle strength judged to be 5-/5 for the major muscle groups in the upper extremity. Lower extremity, the patient has pain and discomfort that radiates down into her right hip and right leg. IMPRESSION: 1. Lumbar radiculopathy, status post laminectomy with continued post-laminectomy syndrome pain. 2. Chronic knee pain. 3. History of plantar fasciitis. 4. Tobacco. 5. 's recent stroke on 06/11/2020. 5. Tobacco: The patient stopped smoking and is using e-cigarettes. RECOMMENDATIONS: We discussed treatment options with the patient. At this juncture, we will continue with her medications. A script for her medications have been provided. The patient will continue with Flexeril 10 mg 1 p.o. t.i.d. She will also continue with gabapentin 600 mg 1 p.o. t.i.d. A script for oxycodone 10/325 one p.o. 5 times a day has been provided. This is because the patient is status post surgery. We will continue to decrease her oxycodone the following month to 120 tablets per month. The patient has been provided with naloxone inhaler should the need arise in the future. We would like to thank you for letting us participate in her care. We hope she continues to improve. By: [id number] Rohith Andrade MD /MIKHAIL
[2020-07-02 09:49] VITALS: BP 129/80
--- NOTE | 2020-07-02 10:22 | NUR ---
Pain Clinic Assessment: 1. History of Osteoarthritis: B/L HIPS B/L LEGS BACK History of Rheumatoid Arthritis: Not Applicable 2. Height: 5 ft. 3 in. 160.0 cm. Weight: 160.0 lb. oz. 72.576 kg. Patient's BMI: 28.4 3. Vital Signs: BP: 129/80 Pulse: 82 Resp: 14 Temp: 02 Sat: 100 ECG Mon: 4. Pain Intensity: 8 5. Fall Risk: Dizziness: N Needs help standing or walking: N Fallen in the last 3 months: N Fall risk comments: 6. Patient on Blood Thinner: None 7. History of Hypertension: Y 8. Opioid Therapy greater than 6 weeks: Y Opiate Contract Signed: 02/21/17 9. Risk Assessment Tool Provided: 1 LOW RISK 10. Functional Assessment Tool: 11. Recreational Drug Use: Never Drug Type: Tobacco Use: Former Smoker Tobacco Type: Amount or Packs/day: How Many Years: Alcohol Use: No Frequency: Quant:
== END ==
LOC: PAIN 06:56
PROVIDERS: ATTEND Anesthesiology Pain Medicine
DX: M54.16 Radiculopathy, lumbar region (principal); M25.569 Pain in unspecified knee; Z79.899 Other long term (current) drug therapy; Z87.891 Personal history of nicotine dependence

== ENCOUNTER → 2020-08-27 | Outpatient (CLI) | payer OTHER ==
[~2020-08-27] VITALS: Ht 160 cm; Wt 71.8 kg
--- NOTE | ~2020-08-27 | HPC ---
[facility] [address] [address] PAIN MANAGEMENT CONSULTATION Name: MITESH HONG Room #: REG [facility]#: [id number] Admission: 08/27/20 Attend Phys: Rohith Andrade MD Discharge: Date of : 58 Report #: [id number] THIS REPORT FOR: cc: Lianna Harris MD, Teresa MD Brown,Rohith Martin MD ~ CC: Rohith Harris MD DATE OF SERVICE: 08/27/2020 CHIEF COMPLAINT: Low back and left leg pain. HISTORY OF PRESENT ILLNESS: The patient is a 59-year-old female who has been followed in the pain clinic. Does have a history of lumbar pain. She has had back surgery. She had back surgery about a year ago. She is still having severe muscle spasms as well as pain radiating down into her legs and her feet. She finds her pain medications continue to be helpful. They are not as effective as she would like. She has difficulty in walking, climbing stairs, lifting, bending, and other activities of daily living. Her is recovering from a stroke, which occurred on 05/2020. She feels that things are still quite stressful. Rates her pain as a 10/10. Has returned today with hopes of renewing her medications. ALLERGIES: COMPAZINE, IBUPROFEN, NAPROSYN, ADHESIVE TAPES. CURRENT MEDICATIONS: Diclofenac gel 1% 4 times daily to the affected area, metoprolol 100 mg, oxycodone 10/325 one p.o. q. 4 hours p.r.n., gabapentin 600 mg 1 p.o. t.i.d., Flexeril 10 mg 1 p.o. t.i.d., Protonix 40 mg, albuterol for asthma, Ventolin 2 puffs p.r.n., Symbicort 160/4.5 mg, promethazine for bronchitis and asthma, docusate 100 mg b.i.d., Linzess 290 mcg. PAIN CLINIC ASSESSMENT AND PQRS: 1. The patient has a history of osteoarthritis in her back. She has had back surgery. She is not being treated for rheumatoid arthritis. 2. Height 5 feet 3 inches, weight 158 pounds, BMI is 28. 3. Vital Signs: Blood pressure is 116/72, pulse 88, respiratory rate 16, room air saturations 100%. 4. Pain intensity 10/10. 5. Fall history: The patient has not fallen in the last 3 months. 6. Blood thinner. The patient is not on a blood thinning medication. 7. Hypertension. The patient is being treated for hypertension. 8. Opioids greater than 6 weeks. The patient receives medication from the pain clinic. 9. Risk assessment tool, moderate for opioid use. [address] [address] PAIN MANAGEMENT CONSULTATION Name: GELYMITESHVAL WHITMAN Room #: REG [facility]#: [id number] Admission: 08/27/20 Attend Phys: Rohith Andrade MD Discharge: Date of : 58 Report #: [id number] 10. Functional assessment tool 59/70. 11. Recreational drug use: The patient denies. 12. Tobacco: The patient is a former smoker. 13. Alcohol. The patient denies frequent use of alcoholic beverages. PHYSICAL EXAMINATION: GENERAL: The patient is a well-developed, well-nourished black female, appears her stated age. She is alert and oriented x 3. Her affect is somewhat down. Given that her has had a stroke and the COVID-19 pandemic is problematic. HEENT: Normocephalic, atraumatic. Extraocular eye muscles intact. The patient is wearing a facial covering. NECK: Without adenopathy or JVD. MUSCULOSKELETAL: Upper extremity muscle strength judged to be 5-/5 for the major muscle groups in the upper extremity. Lower extremity, the patient has pain and discomfort as the lower portion of her back that radiates down into her hips and involves her right leg. Also, has some pain in the left leg. IMPRESSION: 1. History of lumbar radiculopathy, status post laminectomy with continued post-laminectomy syndrome pain. 2. Chronic knee pain. 3. History of plantar fasciitis. 4. Depression, recently had a stroke on 06/11/2020. 5. Tobacco: The patient has stopped smoking and is using e-cigarettes. RECOMMENDATIONS: We discussed treatment options with the patient. At this juncture, we will continue with her medications. A script for the medications have been provided. She is aware these medications can become less effective as time goes on. The opioid medications can become less effective. She will continue with the gabapentin medication 600 mg t.i.d. She will also continue with oxycodone 10 mg 1 p.o. 5 times daily. She will follow up in the near future. We would like to thank you for letting us participate in her care. We hope she continues to improve. The patient has been provided with naloxone inhaler should the need arise in the future. I would like to thank you for allowing us to participate in her care. By: [id number] Rohith Andrade MD /PMT
[2020-08-27 10:08] VITALS: BP 116/72
--- NOTE | 2020-08-27 10:25 | NUR ---
Pain Clinic Assessment: 1. History of Osteoarthritis: B/L HIPS B/L LEGS BACK History of Rheumatoid Arthritis: Not Applicable 2. Height: 5 ft. 3 in. 160.0 cm. Weight: 158.2 lb. oz. 71.759 kg. Patient's BMI: 28.0 3. Vital Signs: BP: 116/72 Pulse: 88 Resp: 16 Temp: 02 Sat: 100 ECG Mon: 4. Pain Intensity: 10 5. Fall Risk: Dizziness: N Needs help standing or walking: N Fallen in the last 3 months: N Fall risk comments: 6. Patient on Blood Thinner: None 7. History of Hypertension: Y 8. Opioid Therapy greater than 6 weeks: Y Opiate Contract Signed: 02/21/17 9. Risk Assessment Tool Provided: 4-MOD RISK 10. Functional Assessment Tool: / 11. Recreational Drug Use: Never Drug Type: Tobacco Use: Former Smoker Tobacco Type: Amount or Packs/day: How Many Years: Alcohol Use: No Frequency: Quant:
== END ==
LOC: PAIN 07:04
PROVIDERS: ATTEND Anesthesiology Pain Medicine
DX: M54.16 Radiculopathy, lumbar region (principal); G89.29 Other chronic pain; M96.1 Postlaminectomy syndrome, not elsewhere classified; I10 Essential (primary) hypertension; F32.9 Major depressive disorder, single episode, unspecified; F17.290 Nicotine dependence, other tobacco product, uncomplicated; Z79.891 Long term (current) use of opiate analgesic

== ENCOUNTER → 2020-10-27 | Outpatient (CLI) | payer OTHER ==
[~2020-10-27] VITALS: Ht 160 cm; Wt 71.8 kg
[2020-10-27 10:14] VITALS: BP 120/74
--- NOTE | 2020-10-27 10:50 | NUR ---
Pain Clinic Assessment: 1. History of Osteoarthritis: B/L HIPS B/L LEGS BACK History of Rheumatoid Arthritis: Not Applicable 2. Height: 5 ft. 3 in. 160.0 cm. Weight: 158.4 lb. oz. 71.850 kg. Patient's BMI: 28.1 3. Vital Signs: BP: 120/74 Pulse: 75 Resp: 14 Temp: 02 Sat: 95 ECG Mon: 4. Pain Intensity: 8 5. Fall Risk: Dizziness: N Needs help standing or walking: N Fallen in the last 3 months: N Fall risk comments: 6. Patient on Blood Thinner: None 7. History of Hypertension: Y 8. Opioid Therapy greater than 6 weeks: Y Opiate Contract Signed: 02/21/17 9. Risk Assessment Tool Provided: 4-MOD RISK 10. Functional Assessment Tool: 11. Recreational Drug Use: Never Drug Type: Tobacco Use: Former Smoker Tobacco Type: Amount or Packs/day: How Many Years: Alcohol Use: No Frequency: Quant:
== END ==
LOC: PAIN 06:43
PROVIDERS: ATTEND Anesthesiology Pain Medicine
DX: M54.16 Radiculopathy, lumbar region (principal); M25.561 Pain in right knee; M25.562 Pain in left knee; G89.29 Other chronic pain; K21.9 Gastro-esophageal reflux disease without esophagitis; I10 Essential (primary) hypertension; F32.9 Major depressive disorder, single episode, unspecified; F17.210 Nicotine dependence, cigarettes, uncomplicated; Z96.653 Presence of artificial knee joint, bilateral; Z90.710 Acquired absence of both cervix and uterus

== ENCOUNTER → 2020-12-22 | Outpatient (CLI) | payer OTHER ==
[~2020-12-22] VITALS: Ht 160 cm; Wt 71.8 kg
[2020-12-22 10:11] VITALS: BP 136/72
--- NOTE | 2020-12-22 10:45 | NUR ---
Pain Clinic Assessment: 1. History of Osteoarthritis: B/L HIPS B/L LEGS BACK History of Rheumatoid Arthritis: Not Applicable 2. Height: 5 ft. 3 in. 160.0 cm. Weight: 158.4 lb. oz. 71.850 kg. Patient's BMI: 28.1 3. Vital Signs: BP: 136/72 Pulse: 87 Resp: 14 Temp: 02 Sat: 100 ECG Mon: 4. Pain Intensity: 7 5. Fall Risk: Dizziness: N Needs help standing or walking: N Fallen in the last 3 months: N Fall risk comments: 6. Patient on Blood Thinner: None 7. History of Hypertension: Y 8. Opioid Therapy greater than 6 weeks: Y Opiate Contract Signed: 02/21/17 9. Risk Assessment Tool Provided: 4-MOD RISK 10. Functional Assessment Tool: 11. Recreational Drug Use: Never Drug Type: Tobacco Use: Former Smoker Tobacco Type: Amount or Packs/day: How Many Years: Alcohol Use: No Frequency: Quant:
== END ==
LOC: PAIN 06:52
PROVIDERS: ATTEND Anesthesiology Pain Medicine
DX: Z87.39 Personal history of other diseases of the musculoskeletal system and connective tissue (principal); M25.569 Pain in unspecified knee; F32.9 Major depressive disorder, single episode, unspecified; Z87.891 Personal history of nicotine dependence; Z88.8 Allergy status to other drugs, medicaments and biological substances; Z79.899 Other long term (current) drug therapy

== ENCOUNTER → 2021-03-02 | Outpatient (CLI) | payer OTHER ==
[~2021-03-02] VITALS: Ht 160 cm; Wt 69.9 kg
[2021-03-02 11:25] VITALS: BP 137/85
--- NOTE | 2021-03-02 11:39 | NUR ---
Pain Clinic Assessment: 1. History of Osteoarthritis: B/L HIPS B/L LEGS BACK History of Rheumatoid Arthritis: Not Applicable 2. Height: 5 ft. 3 in. 160.0 cm. Weight: 154.0 lb. oz. 69.854 kg. Patient's BMI: 27.3 3. Vital Signs: BP: 137/85 Pulse: 94 Resp: 14 Temp: 02 Sat: 99 ECG Mon: 4. Pain Intensity: 7 5. Fall Risk: Dizziness: N Needs help standing or walking: Y Fallen in the last 3 months: N Fall risk comments: 6. Patient on Blood Thinner: None 7. History of Hypertension: Y 8. Opioid Therapy greater than 6 weeks: Y Opiate Contract Signed: 02/21/17 9. Risk Assessment Tool Provided: 4-MOD RISK 10. Functional Assessment Tool: / 11. Recreational Drug Use: Never Drug Type: Tobacco Use: Former Smoker Tobacco Type: Amount or Packs/day: How Many Years: Alcohol Use: No Frequency: Quant:
== END ==
LOC: PAIN 09:08
PROVIDERS: ATTEND Anesthesiology Pain Medicine
DX: M54.16 Radiculopathy, lumbar region (principal); M25.569 Pain in unspecified knee; G89.29 Other chronic pain; F32.9 Major depressive disorder, single episode, unspecified; F17.290 Nicotine dependence, other tobacco product, uncomplicated; Z79.891 Long term (current) use of opiate analgesic; Z79.899 Other long term (current) drug therapy

== ENCOUNTER → 2021-04-29 | Outpatient (CLI) | payer OTHER ==
[~2021-04-29] VITALS: Ht 160 cm; Wt 65.3 kg
[2021-04-29 10:29] VITALS: BP 121/77
--- NOTE | 2021-04-29 10:35 | NUR ---
Pain Clinic Assessment: 1. History of Osteoarthritis: B/L HIPS B/L LEGS BACK History of Rheumatoid Arthritis: Not Applicable 2. Height: 5 ft. 3 in. 160.0 cm. Weight: 144.0 lb. oz. 65.318 kg. Patient's BMI: 25.5 3. Vital Signs: BP: 121/77 Pulse: 94 Resp: 16 Temp: 02 Sat: 98 ECG Mon: 4. Pain Intensity: 7 5. Fall Risk: Dizziness: N Needs help standing or walking: N Fallen in the last 3 months: N Fall risk comments: 6. Patient on Blood Thinner: None 7. History of Hypertension: Y 8. Opioid Therapy greater than 6 weeks: Y Opiate Contract Signed: 02/21/17 9. Risk Assessment Tool Provided: 4-MOD RISK 10. Functional Assessment Tool: 11. Recreational Drug Use: Never Drug Type: Tobacco Use: Former Smoker Tobacco Type: Amount or Packs/day: How Many Years: Alcohol Use: No Frequency: Quant:
== END ==
LOC: PAIN 07:01
PROVIDERS: ATTEND Anesthesiology Pain Medicine
DX: G89.29 Other chronic pain (principal); M25.561 Pain in right knee; K21.9 Gastro-esophageal reflux disease without esophagitis; I10 Essential (primary) hypertension; F17.210 Nicotine dependence, cigarettes, uncomplicated; F32.9 Major depressive disorder, single episode, unspecified; Z90.49 Acquired absence of other specified parts of digestive tract; Z98.890 Other specified postprocedural states; Z96.653 Presence of artificial knee joint, bilateral; Z90.710 Acquired absence of both cervix and uterus; Z88.8 Allergy status to other drugs, medicaments and biological substances; Z79.891 Long term (current) use of opiate analgesic; Z79.899 Other long term (current) drug therapy

== ENCOUNTER → 2021-06-24 | Outpatient (CLI) | payer OTHER ==
[~2021-06-24] VITALS: Ht 160 cm; Wt 68.5 kg
[~2021-06-24] MED LIST changes: +GABAPENTIN800 M1 PO; +NEURONTIN800 MG PO
[2021-06-24 11:06] VITALS: BP 119/89
--- NOTE | 2021-06-24 11:10 | NUR ---
Pain Clinic Assessment: 1. History of Osteoarthritis: B/L HIPS B/L LEGS BACK History of Rheumatoid Arthritis: Not Applicable 2. Height: 5 ft. 3 in. 160.0 cm. Weight: 151.0 lb. oz. 68.493 kg. Patient's BMI: 26.8 3. Vital Signs: BP: 119/89 Pulse: 108 Resp: 16 Temp: 02 Sat: 99 ECG Mon: 4. Pain Intensity: 7 5. Fall Risk: Dizziness: N Needs help standing or walking: N Fallen in the last 3 months: N Fall risk comments: 6. Patient on Blood Thinner: None 7. History of Hypertension: Y 8. Opioid Therapy greater than 6 weeks: Y Opiate Contract Signed: 02/21/17 9. Risk Assessment Tool Provided: 4-MOD RISK 10. Functional Assessment Tool: / 11. Recreational Drug Use: Never Drug Type: Tobacco Use: Former Smoker Tobacco Type: Amount or Packs/day: How Many Years: Alcohol Use: No Frequency: Quant:
== END ==
LOC: PAIN 06:58
PROVIDERS: ATTEND Anesthesiology Pain Medicine
DX: M54.16 Radiculopathy, lumbar region (principal); G89.29 Other chronic pain; F32.9 Major depressive disorder, single episode, unspecified; F17.290 Nicotine dependence, other tobacco product, uncomplicated; Z90.49 Acquired absence of other specified parts of digestive tract; Z86.73 Personal history of transient ischemic attack (TIA), and cerebral infarction without residual deficits

== ENCOUNTER → 2021-08-17 | Outpatient (CLI) | payer OTHER ==
[~2021-08-17] VITALS: Ht 160 cm; Wt 71.4 kg
[~2021-08-17] MED LIST changes: +.; +XANAX 0.25 MG0.25 MG PO
[2021-08-17 10:46] VITALS: BP 149/94
--- NOTE | 2021-08-17 11:00 | NUR ---
Pain Clinic Assessment: 1. History of Osteoarthritis: B/L HIPS B/L LEGS BACK History of Rheumatoid Arthritis: Not Applicable 2. Height: 5 ft. 3 in. 160.0 cm. Weight: 157.4 lb. oz. 71.396 kg. Patient's BMI: 27.9 3. Vital Signs: BP: 149/94 Pulse: 82 Resp: 14 Temp: 02 Sat: 100 ECG Mon: 4. Pain Intensity: 8 5. Fall Risk: Dizziness: N Needs help standing or walking: N Fallen in the last 3 months: N Fall risk comments: 6. Patient on Blood Thinner: None 7. History of Hypertension: Y 8. Opioid Therapy greater than 6 weeks: Y Opiate Contract Signed: 02/21/17 9. Risk Assessment Tool Provided: 4-MOD RISK 10. Functional Assessment Tool: 11. Recreational Drug Use: Never Drug Type: Tobacco Use: Former Smoker Tobacco Type: Amount or Packs/day: How Many Years: Alcohol Use: No Frequency: Quant:
== END ==
LOC: PAIN 06:50
PROVIDERS: ATTEND Anesthesiology Pain Medicine
DX: G89.29 Other chronic pain (principal); M25.569 Pain in unspecified knee; M54.16 Radiculopathy, lumbar region; M79.672 Pain in left foot; I10 Essential (primary) hypertension; K21.9 Gastro-esophageal reflux disease without esophagitis; F34.89 Other specified persistent mood disorders; Z90.49 Acquired absence of other specified parts of digestive tract; Z90.710 Acquired absence of both cervix and uterus; Z96.653 Presence of artificial knee joint, bilateral; Z88.8 Allergy status to other drugs, medicaments and biological substances; Z79.899 Other long term (current) drug therapy

== ENCOUNTER → 2021-10-12 | Outpatient (CLI) | payer OTHER ==
[~2021-10-12] VITALS: Ht 160 cm; Wt 73.5 kg
[~2021-10-12] MED LIST changes: +DIAZEPAM 10 MG10 M1 PO; +VALIUM10 MG PO
[2021-10-12 10:13] VITALS: BP 145/86
--- NOTE | 2021-10-12 10:21 | NUR ---
Pain Clinic Assessment: 1. History of Osteoarthritis: B/L HIPS B/L LEGS BACK History of Rheumatoid Arthritis: Not Applicable 2. Height: 5 ft. 3 in. 160.0 cm. Weight: 162.0 lb. oz. 73.483 kg. Patient's BMI: 28.7 3. Vital Signs: BP: 145/86 Pulse: 77 Resp: 16 Temp: 02 Sat: 98 ECG Mon: 4. Pain Intensity: 9 5. Fall Risk: Dizziness: N Needs help standing or walking: N Fallen in the last 3 months: N Fall risk comments: 6. Patient on Blood Thinner: None 7. History of Hypertension: Y 8. Opioid Therapy greater than 6 weeks: Y Opiate Contract Signed: 02/21/17 9. Risk Assessment Tool Provided: 4-MOD RISK 10. Functional Assessment Tool: 11. Recreational Drug Use: Never Drug Type: Tobacco Use: Former Smoker Tobacco Type: Amount or Packs/day: How Many Years: Alcohol Use: No Frequency: Quant:
== END ==
LOC: PAIN 09:30
PROVIDERS: ATTEND Anesthesiology Pain Medicine
DX: M54.32 Sciatica, left side (principal); M54.16 Radiculopathy, lumbar region; M96.1 Postlaminectomy syndrome, not elsewhere classified; M25.569 Pain in unspecified knee; F34.89 Other specified persistent mood disorders; Z90.49 Acquired absence of other specified parts of digestive tract; Z87.891 Personal history of nicotine dependence; Z88.8 Allergy status to other drugs, medicaments and biological substances; Z79.899 Other long term (current) drug therapy

== ENCOUNTER → 2021-12-09 | Outpatient (CLI) | payer OTHER ==
[~2021-12-09] VITALS: Ht 160 cm; Wt 72.7 kg
[2021-12-09 11:48] VITALS: BP 138/78
--- NOTE | 2021-12-09 12:00 | NUR ---
[facility] Assessment: 1. History of Osteoarthritis: B/L HIPS B/L LEGS BACK History of Rheumatoid Arthritis: Not Applicable 2. Height: 5 ft. 3 in. 160.0 cm. Weight: 160.2 lb. oz. 72.666 kg. Patient's BMI: 28.4 3. Vital Signs: BP: 138/78 Pulse: 70 Resp: 20 Temp: 02 Sat: 100 ECG Mon: 4. Pain Intensity: 10 5. Fall Risk: Dizziness: N Needs help standing or walking: N Fallen in the last 3 months: N Fall risk comments: 6. Patient on Blood Thinner: None 7. History of Hypertension: Y 8. Opioid Therapy greater than 6 weeks: Y Opiate Contract Signed: 02/21/17 9. Risk Assessment Tool Provided: 4-MOD RISK 10. Functional Assessment Tool: 11. Recreational Drug Use: Never Drug Type: Tobacco Use: Former Smoker Tobacco Type: Amount or Packs/day: How Many Years: Alcohol Use: No Frequency: Quant:
== END ==
LOC: PAIN 09:54
PROVIDERS: ATTEND Anesthesiology Pain Medicine
DX: M79.672 Pain in left foot (principal); M79.605 Pain in left leg; M54.50 Low back pain, unspecified; R20.2 Paresthesia of skin; G89.29 Other chronic pain; Z79.899 Other long term (current) drug therapy